=== PATIENT | male | born 1980 | race Two or more races ===

== ENCOUNTER 2023-09-04 14:08 | Outpatient (AMB) | payer BC, SELFPAY ==
--- NOTE | 2023-09-04 14:10 | A.OFFPC_ITS ---
Vital Signs 09/04/23 14:22 Height 5 ft 8.5 in Weight 201 lb 2 oz BMI 30.1 BP 118/80 Blood Pressure Location Lt brachial Position Sitting Pulse 68 Pulse Source Pulse Oximeter Pulse Oximetry (%) 96 Oxygen Delivery Method Room Air Intake Visit Reasons: New Patient Intake Note: Patient is a new patient here to establish care for B/L shoulder pain with numbness down to elbow for the past 6-8 months. . Transferring care from [place]. Medical records have been requested and received. Strategic Planning Manager Required: No Accompanied by: Self / Same As Patient Allergies No Known Allergies Allergy (Verified 02/06/24 04:45) Medication List - Last Reconciled 09/04/23 by Scar Cruz MD No Known Home Meds Tobacco use date assessed: 09/04/23 Dental Screening Dental Screen Date: 09/04/23 Did you have a dental visit in the last 12 months?: Yes Did you have a dental problem in the last 6 months where you did not have access to dental care?: No Was dental information given to patient?: Patient has dentist HPI New Patient HPI Details Patient comes in today to establish care - is a new patient to the practice He is transferring over from his PCP up at the [place] Patient states that he has been experiencing recurrent bilateral shoulder pain, with on and off numbness and pain radiating into his left elbow for the past 6 to 8 months now Notes that his symptoms tend to get worse with increased activity and the symptoms on the right side are slightly worse than the left He denies any history of injury or trauma to his shoulders or to his left elbow He also denies any neck pain or increased low back pain lately although he reports (+) Hx of bulging 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 at the L5-S1 level 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 He denies any headaches or dizziness Denies any chest pains, no SOB No nausea/vomiting, no abdominal pain No change in bowel habits noted Adds that he has noticed that his urine stream has slowed down a lot lately; he denies any nocturia (gets up to go to the bathroom just once a night on average) although he has also noticed some urinary hesitancy and urgency at times Denies any dysuria or hematuria [facility] Medical History (Updated 02/06/24 @ 09:22 by Scar Cruz MD) Overweight (BMI 25.0-29.9) Elevated LFTs Impaired fasting glucose Mixed hyperlipidemia Bilateral shoulder pain History of low back pain Family History Father No problems noted. 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 1. Little interest or pleasure in doing things: not at all 2. Feeling down, depressed, or hopeless: not at all 3. Trouble falling or staying asleep, or sleeping too much: not at all 4. Feeling tired or having little energy: not at all 5. Poor appetite or overeating: not at all 6. Feeling bad about yourself - or that you are a failure or have let yourself or your family down: not at all 7. Trouble concentrating on things, such as reading the newspaper or watching television: not at all 8. Moving or speaking so slowly that other people could have noticed. Or the opposite - being so fidgety or restless that you have been moving around a lot more than usual: not at all 9. Thoughts that you would be better off or of hurting yourself in some way: not at all Total score: 0 Depression Screening Interpretation: Negative Depression Screening Done: Yes 29636 - PHQ-9 Billing: Yes Source: Developed by Drs. Te Gonzalez, Itzel Velasco, Logan Peña and colleagues, with an educational mateo from [employer]. Thrive Questionnaire Date Thrive assessed: 09/04/23 I am a: Patient What is your living situation today?: I have a steady place to live Within the past 12 months, did the food you bought not last and you didn't have the money to get more?: Never true Within the past 12 months, did you worry whether your food would run out before you got money to buy more?: Never true Do you have trouble paying for medicines?: No Do you have trouble getting transportation to medical appointments?: No Do you have trouble paying your heating and electricity bill?: No Do you have trouble taking care of your child, family member or friend?: No Do you have trouble with day-to-day activities such as bathing, preparing meals, shopping, managing finances, etc.?: No Are you currently unemployed and looking for a job?: No Are you interested in more education?: No Please select the resources that you would like help with: None Currently or been in a relationship where the following occur: no concerns reported THRIVE Score: 0 AUDIT C Alcohol Use Questionnaire (AUDIT-C) 1. How often do you have a drink containing alcohol?: Never 3. How often do you have six or more drinks on one occasion?: Never Total Score: 0 Score Reviewed/Action Taken: Yes RERE-7 AMB Questionnaire RERE-7 Date RERE - 7 assessed: 09/04/23 Feeling nervous, anxious, or on edge: 0 = Not at all Not being able to stop or control worryin = Not at all Worrying too much about different things: 0 = Not at all Trouble relaxin = Not at all Being so restless that it is hard to sit still: 0 = Not at all Becoming easily annoyed or irritable: 0 = Not at all Feeling afraid as if something awful might happen: 0 = Not at all Total RERE-7 score (0-4 normal; 5-9 mild; 10-14 moderate; 15-21 severe): 0 Source: Developed by Drs. Te Gonzalez, Itzel Velasco, Logan Peña and colleagues, with an educational mateo from [employer]. RERE-7 Assessment Billing RERE-7 Assessment Tool: RERE-7 Assessment 83815 Review of Systems Const Denies chills, Denies fatigue, Denies fever(s) and Denies headache(s) ENT Denies dysphagia, Denies dizziness, Denies otalgia, Denies headache(s), Denies neck pain, Denies odynophagia and Denies sore throat Card Denies chest pain, Denies irregular heart rhythm, Denies palpitations and Denies dyspnea Resp Denies chest congestion, Denies cough and Denies dyspnea GI Denies abdominal pain, Denies constipation, Denies dysphagia, Denies heartburn, Denies diarrhea, Denies nausea, Denies odynophagia and Denies vomiting Denies hematuria, Reports difficulty urinating (at times), Denies dysuria, Denies nocturia, Denies urinary frequency, Reports urinary hesitancy (at times) and Reports urinary urgency (at times) Musc Denies back pain, Reports arthralgias (bilateral shoulders, R > L; left elbow (at times)), Denies neck pain and Reports numbness (on and off, radiating into the left elbow) Skin/Breast Denies rash Neuro Denies dizziness, Denies headache(s) and Reports numbness (on and off, radiating into the left elbow) Endo Denies fatigue and Denies palpitations Physical exam (Primary Care) Vital Signs: Last Vital Signs Pulse 68 09/04/23 14:22 BP 118/80 09/04/23 14:22 Pulse Ox 96 09/04/23 14:22 Oxygen Delivery Method Room Air 09/04/23 14:22 BMI result Body Mass Index 30.1 Tobacco/Smoking Status: Tobacco use Status Tobacco use date assessed 09/04/23 09/04/23 14:29 Patient Tobacco Use Status Never used Tobacco 09/04/23 14:29 e-Cigarette/Vaping Use Never Used 09/04/23 14:29 PHQ-9: PHQ-9 Score PHQ-9: Total score 0 09/04/23 14:42 Depression Screening Interpretation: Negative Thrive Assessment: Date of Thrive Assessment Date Thrive assessed 09/04/23 09/04/23 14:29 Currently or been in a relationship where the following occur: no concerns reported Const General: no acute distress and alert HENMT Ears: TM's normal bilaterally and EAC's normal Throat: Yes posterior oropharynx normal and Yes tonsils normal (no TP congestion) Neck Neck: Yes no lymphadenopathy and Yes supple Thyroid: Thyroid normal Resp Auscultation: clear to auscultation bilaterally, no rales and no wheezes Cardio Rate: regular rate Rhythm: regular rhythm Heart sounds: no murmurs GI Palpation (GI): Soft to palpation and nontender Auscultation: normal bowel sounds General: Yes no CVA tenderness Back/Spine/Pelvis Back: no CVA tenderness Thoracic/Lumbar Spine: lumbar spinal tenderness (mild) Skin Rashes: no rashes Extrem General: Yes no clubbing, cyanosis or edema Right upper extremity: shoulder/upper arm Details: tenderness Location: of the A-C joint and normal ROM; no swelling Left upper extremity: shoulder/upper arm Details: tenderness Location: of the A- C joint and normal ROM; no swelling Assessment and Plan Assessment & Plan (1) Bilateral shoulder pain: Code(s): M25.511 - Pain in right shoulder; M25.512 - Pain in left shoulder Qualifiers: Chronicity: unspecified Qualified Code(s): M25.511 - Pain in right shoulder; M25.512 - Pain in left shoulder Plan: Will send patient for x-rays of both shoulders for further evaluation (2) Left elbow pain: Code(s): M25.522 - Pain in left elbow Plan: Will send patient for x-rays of the left elbow for further evaluation (3) Urinary hesitancy: Code(s): R39.11 - Hesitancy of micturition Plan: Discussed with patient that his recent urinary symptoms are highly suggestive of BPH Will send him for some labs, including U/A and serum PSA level, for further evaluation (4) Obesity (BMI 30-39.9): Code(s): E66.9 - Obesity, unspecified Plan: Discussed diet/exercise as tolerated/lose weight Plan To return in 4 months for his annual physical examination Orders: Orders Complete Blood Count Auto Diff 09/04/23 D64.9 - Anemia, unspecified, M25.50 - Pain in unspecified joint XR elbow LT min 3V 09/04/23 M25.522 - Pain in left elbow TSH reflex Free T4 09/04/23 E78.00 - Pure hypercholesterolemia, unspecified, Z00.00 - Encounter for general adult medical examination without abnormal findings Vitamin D 25-OH Total 4 Months E55.9 - Vitamin D deficiency, unspecified, Z00.00 - Encounter for general adult medical examination without abnormal findings Prostate Specific Antigen 09/04/23 N40.0 - Benign prostatic hyperplasia without lower urinary tract symptoms, M25.50 - Pain in unspecified joint UA CC w/rflx Micro + Cult 09/04/23 R30.0 - Dysuria, M25.50 - Pain in unspecified joint XR shoulder LT min 2V 09/04/23 M25.511 - Pain in right shoulder, M25.512 - Pain in left shoulder XR shoulder RT min 2V 09/04/23 M25.511 - Pain in right shoulder, M25.512 - Pain in left shoulder Lipid Panel 09/04/23 E78.00 - Pure hypercholesterolemia, unspecified, Z00.00 - Encounter for general adult medical examination without abnormal findings Comprehensive [place]. Panel Fast 09/04/23 E78.00 - Pure hypercholesterolemia, unspecified, Z00.00 - Encounter for general adult medical examination without abnormal findings Coding Level of Care Code New Pt Level 4 (55726) Diagnoses Bilateral shoulder pain, unspecified chronicity M25.511; M25.512 Chronicity: unspecified Left elbow pain M25.522 Urinary hesitancy R39.11 Obesity (BMI 30-39.9) E66.9 Additional Codes RERE-7 Assessment Billing - RERE-7 Assessment Tool: RERE-7 Assessment 97186 ([id number])
[2023-09-04 14:22] VITALS: BP 118/80; PULSE 68; O2SAT 96; BMI 30.1
== END 2023-09-04 15:11 | disposition home or self-care (01) ==
PROVIDERS: PCP Internal Medicine; Visit Provider Internal Medicine
DX: M25.511 Pain in right shoulder (principal); M25.512 Pain in left shoulder; M25.522 Pain in left elbow; R39.11 Hesitancy of micturition; E66.9 Obesity, unspecified
CPT/HCPCS: 99499

== ENCOUNTER 2023-09-19 16:53 | Outpatient (REF) | payer BC, SELFPAY ==
--- NOTE | ~2023-09-19 | XR_ITS ---
EXAMINATION: XR BILATERAL SHOULDERS XR LEFT ELBOW CLINICAL INFORMATION: Pain in right shoulder, lateral elbow is under oblique tag per technologist statement. Pain left elbow. COMPARISON: None TECHNIQUE: 3 views left elbow. 4 views of each shoulder. FINDINGS: LEFT ELBOW: No significant joint effusion. Large dorsal olecranon spur with prominence of the overlying soft tissues. Alignment preserved. No displaced fracture appreciated. LEFT SHOULDER: Mild degenerative changes in the acromioclavicular joint. Glenohumeral alignment is preserved. No significant soft tissue calcifications are identified adjacent to the humeral head. RIGHT SHOULDER: Mild degenerative changes in the acromioclavicular joint. Glenohumeral alignment is preserved. No abnormal soft tissue calcifications identified adjacent to the humeral head. XR/XR shoulder LT min 2V IMPRESSION: 1. Large left dorsal olecranon spur with prominence of the overlying soft tissues. 2. Mild degenerative changes bilateral acromioclavicular joints.
--- NOTE | ~2023-09-19 | XR_ITS ---
EXAMINATION: XR BILATERAL SHOULDERS XR LEFT ELBOW CLINICAL INFORMATION: Pain in right shoulder, lateral elbow is under oblique tag per technologist statement. Pain left elbow. COMPARISON: None TECHNIQUE: 3 views left elbow. 4 views of each shoulder. FINDINGS: LEFT ELBOW: No significant joint effusion. Large dorsal olecranon spur with prominence of the overlying soft tissues. Alignment preserved. No displaced fracture appreciated. LEFT SHOULDER: Mild degenerative changes in the acromioclavicular joint. Glenohumeral alignment is preserved. No significant soft tissue calcifications are identified adjacent to the humeral head. RIGHT SHOULDER: Mild degenerative changes in the acromioclavicular joint. Glenohumeral alignment is preserved. No abnormal soft tissue calcifications identified adjacent to the humeral head. XR/XR shoulder RT min 2V IMPRESSION: 1. Large left dorsal olecranon spur with prominence of the overlying soft tissues. 2. Mild degenerative changes bilateral acromioclavicular joints.
--- NOTE | ~2023-09-19 | XR_ITS ---
EXAMINATION: XR BILATERAL SHOULDERS XR LEFT ELBOW CLINICAL INFORMATION: Pain in right shoulder, lateral elbow is under oblique tag per technologist statement. Pain left elbow. COMPARISON: None TECHNIQUE: 3 views left elbow. 4 views of each shoulder. FINDINGS: LEFT ELBOW: No significant joint effusion. Large dorsal olecranon spur with prominence of the overlying soft tissues. Alignment preserved. No displaced fracture appreciated. LEFT SHOULDER: Mild degenerative changes in the acromioclavicular joint. Glenohumeral alignment is preserved. No significant soft tissue calcifications are identified adjacent to the humeral head. RIGHT SHOULDER: Mild degenerative changes in the acromioclavicular joint. Glenohumeral alignment is preserved. No abnormal soft tissue calcifications identified adjacent to the humeral head. XR/XR elbow LT min 3V IMPRESSION: 1. Large left dorsal olecranon spur with prominence of the overlying soft tissues. 2. Mild degenerative changes bilateral acromioclavicular joints.
== END 2023-09-19 16:54 | disposition home or self-care (01) ==
LOC: HO.XRAY 16:53
PROVIDERS: PCP Internal Medicine; Visit Provider Internal Medicine
DX: M25.511 Pain in right shoulder (principal); M25.512 Pain in left shoulder; M25.522 Pain in left elbow
CPT/HCPCS: 73030; 73080

== ENCOUNTER 2023-09-21 08:10 | Outpatient (AMB) | payer BC, SELFPAY ==
[2023-09-21 09:13] VITALS: BP 110/68; PULSE 54; TEMP 36.3; O2SAT 99
--- NOTE | 2023-09-21 09:13 | AM.OFFWIN_ITS ---
Intake Vital Signs 09/21/23 09:13 Height 5 ft 8.5 in Weight 200 lb BMI 30.0 BP 110/68 Blood Pressure Location Lt brachial Position Sitting Pulse 54 Pulse Source Pulse Oximeter Temp 97.4 F Temp Source Temporal Artery Scan Pulse Oximetry (%) 99 Oxygen Delivery Method Room Air Intake Visit Reasons: EP LT shoulder/neck pain Intake Note: pt is here today for lft shoulder neck pain started 3 weeks ago Patient Tobacco Use Status: Never used Tobacco Allergies No Known Allergies Allergy (Verified 09/21/23 09:18) Do you need a note to return to daycare/school/sports/work: Yes HPI HPI Comments History of Present Illness Details 42 y/o male patient who presents to walk in clinic with c/o left shoulder/neck pain x 3 weeks. Reports that pain radiates down to his left elbow and hand. Pt had X-rays done yesterday, final reading pending. [facility] Medical History (Updated 09/04/23 @ 15:00 by Scar Cruz MD) Bilateral shoulder pain History of low back pain Family History (Updated 09/04/23 @ 14:26 by JOSE Spann) Father No problems noted. 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 Cognitive needs: No Hearing needs: No Vision needs: No Review of Systems Const All systems reviewed & are unremarkable except as noted in HPI and below Physical Exam Vital Signs: Last Vital Signs Temp 97.4 F 09/21/23 09:13 Pulse 54 09/21/23 09:13 BP 110/68 09/21/23 09:13 Pulse Ox 99 09/21/23 09:13 Oxygen Delivery Method Room Air 09/21/23 09:13 BMI result Body Mass Index 30.0 Const General: comfortable and no acute distress Orientation/consciousness: patient oriented x3 Neuro General: patient oriented x3 Extrem General: Yes normal to inspection and Yes full ROM Right upper extremity: normal to inspection, full ROM, shoulder/upper arm Details: normal to inspection and normal ROM; no tenderness and no swelling and elbow/forearm Details: normal to inspection and normal ROM; no tenderness and no swelling Left upper extremity: normal to inspection, shoulder/upper arm Details: inspection abnormal, axillary nerve sensory function normal and normal ROM; no tenderness, no swelling, no ecchymosis, no crepitus and no deformity and elbow/forearm Details: normal to inspection and normal ROM; no tenderness, no swelling and no unusual warmth Assessment & Plan Assessment & Plan (1) Neck pain on left side: Code(s): M54.2 - Cervicalgia Plan: - Acetaminophen for pain relief. - Advised PT and referral ordered. Orders: Orders PT Evaluation and Treatment Today M25.522 - Pain in left elbow, M54.2 - Cervicalgia Coding Level of Care Code Est Pt Level 3 (32528) Diagnoses Neck pain on left side M54.2 Time Spent (min) 15
== END 2023-09-21 11:17 | disposition home or self-care (01) ==
PROVIDERS: PCP Internal Medicine; Visit Provider Nurse Practitioner Family
DX: M54.2 Cervicalgia (principal)
CPT/HCPCS: 99213

== ENCOUNTER 2023-09-21 08:13 | Outpatient (REF) | payer BC, SELFPAY ==
[2023-09-21 10:23] LABS: MANUAL DIFF FLAG NO
[2023-09-21 10:36] LABS: Appearance Urine Clear; Color Urine Yellow; Glucose Urine UA Negative (Negative); Leukocyte Esterase Urine Negative (Negative); Nitrite Urine Negative (Negative); PH 5.5 (5.0-9.0); Specific Gravity - Urine >= 1.030 (1.005-1.025); Urine Blood Negative (Negative); Urine Ketones Negative (Negative); Urine Protein Negative (Neg-Trace)
[2023-09-21 10:49] LABS: Basophils Absolute Auto 0.1 X10*3/uL (0.0-0.2); Basophils Percent Auto 0.8 % (0-2); Eosinophils Absolute Auto 0.2 X10*3/uL (0.0-0.4); Eosinophils Percent Auto 2.5 % (0-4); Hematocrit 46.3 % (42.0-52.0); Hemoglobin 15.6 g/dl (14.0-18.0); Imm Gran Abs Auto 0.01 X10*3/uL (0.00-0.03); Imm Gran Pct Auto 0.2 % (0.0-0.4); Lymphocytes Absolute Auto 2.2 X10*3/uL (1.2-4.9); Mean Corpuscular HGB Conc 33.7 g/dl (31.0-36.0); Mean Corpuscular Hemoglobin 29.2 pg (27.0-33.0); Mean Corpuscular Volume 86.5 fL (80.0-98.0); Mean Platelet Volume 11.4 fL (9.4-12.4); Monocytes Absolute Auto 0.7 X10*3/uL (0.1-1.2); Monocytes Percent Auto 11.1 % (2-11); Neutrophils Absolute Auto 3.3 x10*3/uL (2.0-8.3); Neutrophils Percent Auto 51.4 % (45-73); Platelet Count 297 X10*3/uL (160-400); Red Blood Count 5.35 X10*6/uL (4.60-5.80); Red Cell Distribution Width 13.2 % (11.0-16.0); White Blood Count 6.4 X10*3/uL (4.8-10.8)
[2023-09-21 11:00] LABS: Alanine Aminotransferase 43 U/L (0-40); Albumin Level 4.2 g/dL (3.5-5.0); Alkaline Phosphatase 88 U/L (39-117); Anion Gap 8 (12-20); Aspartate Amino Transferase 22 U/L (5-37); Bilirubin Total 0.4 mg/dL (0.0-1.0); Blood Urea Nitrogen 13 mg/dL (9-16); Calcium 9.4 mg/dL (8.4-10.2); Carbon Dioxide 28 mmol/L (22-29); Chloride 107 mmol/L (96-108); Cholesterol 166 mg/dL (<200); Estimated Glomerular Filt Rate > 60; Glucose Fasting 103 mg/dL (60-99); HDL Cholesterol 41 mg/dL (>40); LDL Cholesterol Calculated 94 mg/dL (<100); Potassium 4.2 mmol/L (3.3-5.1); Sodium 139 mmol/L (135-145); Total Protein 7.5 g/dL (6.5-8.0); Triglycerides 159 mg/dL (<150)
[2023-09-21 11:03] LABS: Prostate Specific Antigen 3.88 ng/mL (<0.05-4.0)
[2023-09-21 11:06] LABS: TSH reflex Free T4 1.42 uIU/mL (0.32-4.0); Vitamin D 25-OH Total 37.9 ng/mL (>30)
== END 2023-09-21 08:14 | disposition home or self-care (01) ==
LOC: HO.HMGCLDS 08:13
PROVIDERS: PCP Internal Medicine; Visit Provider Internal Medicine
DX: Z00.00 Encounter for general adult medical examination without abnormal findings (principal); Z12.5 Encounter for screening for malignant neoplasm of prostate; M25.50 Pain in unspecified joint; E55.9 Vitamin D deficiency, unspecified; N40.0 Benign prostatic hyperplasia without lower urinary tract symptoms; R30.0 Dysuria; E78.00 Pure hypercholesterolemia, unspecified; D64.9 Anemia, unspecified
CPT/HCPCS: 36415; 80053; 80061; 81003; 82306; 84153; 84443; 85025

== ENCOUNTER 2024-02-05 14:51 | Outpatient (AMB) | payer BC, SELFPAY ==
[2024-02-05 15:04] VITALS: BP 104/68; PULSE 73; O2SAT 96; BMI 29.9
--- NOTE | 2024-02-05 15:04 | A.OFFPC_ITS ---
Vital Signs 02/05/24 15:04 Height 5 ft 8.5 in Weight 199 lb 6 oz BMI 29.9 BP 104/68 Blood Pressure Location Lt brachial Position Sitting Pulse 73 Pulse Source Pulse Oximeter Pulse Oximetry (%) 96 Oxygen Delivery Method Room Air Intake Visit Reasons: annual PE Environmental Protection Geologist Required: No Accompanied by: Self / Same As Patient Allergies No Known Allergies Allergy (Verified 02/06/24 04:45) Medication List - Last Reconciled 02/06/24 by Scar Cruz MD No Known Home Meds Tobacco use date assessed: 02/05/24 Dental Screening Dental Screen Date: 02/05/24 Did you have a dental visit in the last 12 months?: Yes Did you have a dental problem in the last 6 months where you did not have access to dental care?: No Was dental information given to patient?: Patient has dentist HPI annual PE HPI Details Patient comes in today for his annual physical examination States that he feels okay except for some urinary symptoms that he states have been bothering him for a few months now He reports experiencing recurrent symptoms of urinary frequency, nocturia and urgency at times He has also noticed some initial urinary hesitancy when he is using the bathroom and has noted a decrease in the strength of his urinary stream as well lately He denies any dysuria He denies any headaches or dizziness Denies any chest pains, no SOB No nausea/vomiting, no abdominal pain No change in bowel habits noted He would like to know how he did on his labs done back in August 2023 [facility] Medical History (Updated 02/06/24 @ 05:19 by Scar Cruz MD) Overweight (BMI 25.0-29.9) Elevated LFTs Impaired fasting glucose Mixed hyperlipidemia Bilateral shoulder pain History of low back pain Family History Father No problems noted. 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 1. Little interest or pleasure in doing things: not at all 2. Feeling down, depressed, or hopeless: not at all 3. Trouble falling or staying asleep, or sleeping too much: not at all 4. Feeling tired or having little energy: not at all 5. Poor appetite or overeating: not at all 6. Feeling bad about yourself - or that you are a failure or have let yourself or your family down: not at all 7. Trouble concentrating on things, such as reading the newspaper or watching television: not at all 8. Moving or speaking so slowly that other people could have noticed. Or the opposite - being so fidgety or restless that you have been moving around a lot more than usual: not at all 9. Thoughts that you would be better off or of hurting yourself in some way: not at all Total score: 0 Depression Screening Interpretation: Negative Depression Screening Done: Yes 61409 - PHQ-9 Billing: Yes Source: Developed by Drs. Te Gonzalez, Itzel Velasco, Logan Peña and colleagues, with an educational mateo from [employer]. Thrive Questionnaire Date Thrive assessed: 02/05/24 I am a: Patient What is your living situation today?: I have a steady place to live Within the past 12 months, did the food you bought not last and you didn't have the money to get more?: Never true Within the past 12 months, did you worry whether your food would run out before you got money to buy more?: Never true Do you have trouble paying for medicines?: No Do you have trouble getting transportation to medical appointments?: No Do you have trouble paying your heating and electricity bill?: No Do you have trouble taking care of your child, family member or friend?: No Do you have trouble with day-to-day activities such as bathing, preparing meals, shopping, managing finances, etc.?: No Are you currently unemployed and looking for a job?: No Are you interested in more education?: No Please select the resources that you would like help with: None Currently or been in a relationship where the following occur: No concerns reported THRIVE Score: 0 AUDIT C Alcohol Use Questionnaire (AUDIT-C) 1. How often do you have a drink containing alcohol?: Monthly or less 2. How many drinks containing alcohol do you have on a typical day when you are drinking?: 1 or 2 3. How often do you have six or more drinks on one occasion?: Never Total Score: 1 Score Reviewed/Action Taken: Yes RERE-7 AMB Questionnaire RERE-7 Date RERE - 7 assessed: 02/05/24 Feeling nervous, anxious, or on edge: 0 = Not at all Not being able to stop or control worryin = Not at all Worrying too much about different things: 0 = Not at all Trouble relaxin = Not at all Being so restless that it is hard to sit still: 0 = Not at all Becoming easily annoyed or irritable: 0 = Not at all Feeling afraid as if something awful might happen: 0 = Not at all Total RERE-7 score (0-4 normal; 5-9 mild; 10-14 moderate; 15-21 severe): 0 Source: Developed by Drs. Te Gonzalez, Itzel Velasco, Logan Peña and colleagues, with an educational mateo from [employer]. Review of Systems Const Denies chills, Denies fatigue, Denies fever(s), Denies headache(s), Denies malaise and Denies weakness Eyes Denies blurry vision, Denies change in vision, Denies irritation and Denies itchy eyes ENT Denies dysphagia, Denies dizziness, Denies otalgia, Denies headache(s), Denies nasal congestion, Denies neck pain, Denies odynophagia and Denies sore throat Card Denies chest pain, Denies rapid heart rate, Denies irregular heart rhythm, Denies palpitations and Denies dyspnea Resp Denies chest congestion, Denies cough, Denies dyspnea and Denies wheezing GI Denies abdominal pain, Denies bloating, Denies constipation, Denies dysphagia, Denies heartburn, Denies diarrhea, Denies nausea, Denies odynophagia and Denies vomiting Denies hematuria, Reports difficulty urinating (at times), Denies dysuria, Reports nocturia, Reports urinary frequency, Reports urinary hesitancy and Reports urinary urgency Musc Denies back pain, Denies arthralgias, Denies joint swelling, Denies muscle weakness and Denies neck pain Skin/Breast Denies change in pigmentation, Denies lesions, Denies rash and Denies unusual bruising Neuro Denies dizziness, Denies headache(s), Denies paresthesias and Denies weakness Endo Denies fatigue and Denies palpitations Aller/Immun Denies itchy eyes and Denies wheezing Physical exam (Primary Care) Vital Signs: Last Vital Signs Pulse 73 02/05/24 15:04 BP 104/68 02/05/24 15:04 Pulse Ox 96 02/05/24 15:04 Oxygen Delivery Method Room Air 02/05/24 15:04 BMI result Body Mass Index 29.9 Tobacco/Smoking Status: Tobacco use Status Tobacco use date assessed 02/05/24 02/05/24 15:10 Patient Tobacco Use Status Never used Tobacco 02/05/24 15:10 e-Cigarette/Vaping Use Never Used 02/05/24 15:10 PHQ-9: PHQ-9 Score PHQ-9: Total score 0 02/05/24 15:38 Depression Screening Interpretation: Negative Thrive Assessment: Date of Thrive Assessment Date Thrive assessed 02/05/24 02/05/24 15:10 Currently or been in a relationship where the following occur: No concerns reported Const General: no acute distress, alert and awake Orientation/consciousness: patient oriented x3 HENMT Head: Yes normocephalic and Yes atraumatic Ears: external ears normal, TM's normal bilaterally and EAC's normal General nose exam: No nasal discharge present Face and sinus: Yes normal facial exam and Yes sinuses nontender Teeth and gingiva: dentition normal Throat: Yes posterior oropharynx normal and Yes tonsils normal (no TP congestion) Eyes Eyelids: Yes eyelids normal Conjunctivae: conjunctivae normal Pupils: Equal, round and reactive pupils present EOM: EOMs intact bilaterally Neck Neck: Yes no lymphadenopathy and Yes supple Thyroid: Thyroid normal Resp Auscultation: clear to auscultation bilaterally, no rales and no wheezes Cardio Rate: regular rate Rhythm: regular rhythm Heart sounds: no murmurs GI Palpation (GI): Soft to palpation, nontender and No hepatosplenomegaly present Auscultation: normal bowel sounds General: Yes no CVA tenderness Back/Spine/Pelvis Back: no CVA tenderness Thoracic/Lumbar Spine: thoracic and lumbar spine normal to inspection Skin Lesions: no lesions Rashes: no rashes Neuro General: patient oriented x3, moves all extremities, no focal motor deficits and CN's II-XI intact bilaterally Cranial nerves: Yes Equal, round and reactive pupils present Cognition (Neuro): normal cognition Gait exam (Neuro): Normal gait present Extrem General: Yes no clubbing, cyanosis or edema Results Reviewed Results Reviewed: Laboratory Tests 09/21/23 09/21/23 08:52 09:02 WBC 6.4 Hgb 15.6 Hct 46.3 Plt Count 297 Sodium 139 Potassium 4.2 Creatinine 0.89 Estimated GFR > 60 Fasting Glucose 103 H Calcium 9.4 AST 22 ALT 43 H Triglycerides 159 H Cholesterol 166 LDL Cholesterol, Calc 94 HDL Cholesterol 41 Prostate Specific Ag 3.88 25-OH Vitamin D Total 37.9 TSH 1.42 Ur Specific [place] >= 1.030 H Urine Protein Negative Urine Glucose (UA) Negative Urine Blood Negative Urine Nitrite Negative Ur Leukocyte Esterase Negative Assessment and Plan Assessment & Plan (1) Annual physical exam: Code(s): Z00.00 - Encounter for general adult medical examination without abnormal findings Plan: Results of his labs done back in August 2023 reviewed and discussed with patient (2) Mixed hyperlipidemia: Code(s): E78.2 - Mixed hyperlipidemia Plan: Patient is advised that his serum triglyceride level was elevated on his labs done back in August 2023 although his total and LDL cholesterol were at goal Discussed low cholesterol diet (3) Impaired fasting glucose: Code(s): R73.01 - Impaired fasting glucose Plan: He is advised that his FBS is just slightly over the cutoff for normal range Discussed low calorie/low carb diet to help manage her hyperglycemia (4) Elevated LFTs: Code(s): R79.89 - Other specified abnormal findings of blood chemistry Plan: He is also advised that his ALT was elevated on his labs back in August 2023; AST was normal Discussed that this is likely due to hepatosteatosis and that losing some weight can help get this back to normal He is cautioned as well on drinking too much alcohol and also advised against taking more than a total of 2000 mg of OTC Acetaminphen when needed (5) Benign prostatic hyperplasia with lower urinary tract symptoms: Code(s): N40.1 - Benign prostatic hyperplasia with lower urinary tract symptoms Qualifiers: Lower urinary tract symptom detail: urinary frequency Qualified Code(s): N40.1 - Benign prostatic hyperplasia with lower urinary tract symptoms; R35.0 - Frequency of micturition Plan: Have advised patient that his serum PSA level was also slightly elevated on his recent labs at 3.88 and that this, coupled with his recent urinary symptoms, are consistent with BPH Have advised him though that he should still be seen and evaluated by urology to ensure that he stays up-to-date on his prostate tests and evaluation Will refer him to urology for further evaluation and management (6) Overweight (BMI 25.0-29.9): Code(s): E66.3 - Overweight Plan: Reinforced diet/exercise as tolerated/lose weight Plan Follow up in 6 months Orders: Referrals Urology Referral N40.1 - Benign prostatic hyperplasia with lower urinary tract symptoms, R97.20 - Elevated prostate specific antigen [PSA] Coding Level of Care Code Est Pt Prev Care 40-64y(27012) Diagnoses Annual physical exam Z00.00 Mixed hyperlipidemia E78.2 Impaired fasting glucose R73.01 Elevated LFTs R79.89 Benign prostatic hyperplasia with urinary frequency N40.1; R35.0 Lower urinary tract symptom detail: urinary frequency Overweight (BMI 25.0-29.9) E66.3
== END 2024-02-05 15:45 | disposition home or self-care (01) ==
PROVIDERS: PCP Internal Medicine; Visit Provider Internal Medicine
DX: Z00.00 Encounter for general adult medical examination without abnormal findings (principal); E78.2 Mixed hyperlipidemia; R73.01 Impaired fasting glucose; R79.89 Other specified abnormal findings of blood chemistry; N40.1 Benign prostatic hyperplasia with lower urinary tract symptoms; R35.0 Frequency of micturition; E66.3 Overweight
CPT/HCPCS: 99396

== ENCOUNTER 2024-04-01 08:55 | Outpatient (AMB) | payer BC, SELFPAY ==
--- NOTE | 2024-04-01 09:04 | MHC.OFFVIS ---
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 Cruz. He has a past medical history of elevated LFTs, mixed hyperlipidemia, and low-back pain. He presents to the office today as a new patient for ongoing lower urinary tract symptoms and elevated PSA. In discussion with the patient today he reports noting bothersome urinary issues have been present for 4-5 years however feels they have worsened over the last year. He reports noting urge incontinence urinary frequency, and urinary urgency. In review of patient's chart it appears PSA 09/19 3.9. When asked he denies a family history of prostate cancer. We discussed at length potential causes of lower urinary tract symptoms patient has been experiencing as well as elevated PSA. This was discussed at length. All questions were answered. SARWAT performed smooth, no masses or nodules palpated however right side firmer than left. In office urinalysis results reviewed with the patient today. PVR 42 mL. We discussed redraw of PSA with no sex the night before, no caffeine morning of, no heavy lifting 1-2 days prior as well as obtaining retroperitoneal ultrasound for further assessment evaluation. He otherwise denies hematuria, dysuria, foul smelling urine, changes to urinary stream, flank pain, fever, and or chills. [facility] Medical History Overweight (BMI 25.0-29.9) Elevated LFTs Impaired fasting glucose Mixed hyperlipidemia Bilateral shoulder pain History of low back pain Family History Father No problems noted. 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 Cognitive needs: No Hearing needs: No Vision needs: No Review of Systems Const All systems reviewed & are unremarkable except as noted in HPI and below Physical Exam Const General: cooperative, comfortable, no acute distress, well developed, alert and awake Orientation/consciousness: patient oriented x3 HEENT Head: Yes normal to inspection, Yes normocephalic and Yes atraumatic Ears: hearing grossly normal bilaterally Eyes General: appearance normal, both eyes and all related structures Neck Neck: Yes normal visual inspection and Yes trachea midline Chest Chest palpation & inspection: normal inspection of the chest Resp Effort & Inspection: normal respiratory effort and able to speak in complete sentences Cardio Rate: regular rate GI Inspection: Yes normal to inspection General: Yes no CVA tenderness Back/Spine/Pelvis Back: no CVA tenderness Skin General skin exam: no rashes or lesions noted Neuro General: patient oriented x3 Extrem General: Yes normal to inspection Psych Appearance: grossly normal and well kempt Mental Status: mental status grossly normal Speech and movement: Normal speech and movement present and Clear speech present Affect: normal affect Attitude: cooperative Thought process: Normal thought process present Thought content: Normal thought content present Insight: Fair insight present (Psych) Judgement: Fair judgement present (Psych) Office Procedures Post Void Residual Post Residual Void Post Void Residual (PVR): 42 [id number] Void Residual by ultrasound Results AMB Urinalysis, Automated UA Leukoctes 0 Munir/uL Last Edit by Marco AntonioTutorialTabcurtis Juarez on 04/01/24 09:20 UA Nitrite Last Edit by Aurora Juarez on 04/01/24 09:20 UA Urobilinogen 0.2 mg/dL Last Edit by Aurora Juarez on 04/01/24 09:20 UA Protein 0 mg/dL Last Edit by Aurora Juarez on 04/01/24 09:20 UA pH 6.0 Last Edit by Marco AntonioTutorialTabcurtis Juarez on 04/01/24 09:20 UA Blood 0 Wilian/uL Last Edit by Marco AntonioTutorialTabcurtis Juarez on 04/01/24 09:20 UA Specific [place] 1.020 Last Edit by Aurora Juarez on 04/01/24 09:20 UA Ketone Last Edit by Marco AntonioTutorialTabcurtis Juarez on 04/01/24 09:20 UA Bilirubin 0 mg/dL Last Edit by Aurora Juarez on 04/01/24 09:20 UA Glucose 0 mg/dL Last Edit by Marco AntonioTutorialTabcurtis Juarez on 04/01/24 09:20 Results Reviewed Results Reviewed: Laboratory Last Values Urine pH (Auto) 6.0 04/01/24 09:13 Specific [place] (Auto) 1.020 04/01/24 09:13 Urine Protein (Auto) 0 mg/dL 04/01/24 09:13 Glucose (UA)(Auto) 0 mg/dL 04/01/24 09:13 Urine Blood (Auto) 0 Wilian/uL 04/01/24 09:13 Urine Bilirubin (Auto) 0 mg/dL 04/01/24 09:13 Urine Urobilinogen (Auto) 0.2 mg/dL 04/01/24 09:13 Leukocyte Esterase (Auto) 0 Munir/uL 04/01/24 09:13 Assessment & Plan Assessment & Plan (1) Elevated PSA: Code(s): R97.20 - Elevated prostate specific antigen [PSA] Category: Medical (2) Urinary urgency: Code(s): R39.15 - Urgency of urination Category: Medical (3) Urinary frequency: Code(s): R35.0 - Frequency of micturition Category: Medical (4) Urinary incontinence, urge: Code(s): N39.41 - Urge incontinence Category: Medical Plan In office urinalysis results reviewed with the patient today; as noted above. PVR 42 mL. Recent PSA results reviewed with the patient today. SARWAT performed; as noted above. Discussed at length potential causes of lower urinary tract symptoms patient is experiencing. Discussed at length potential causes of elevated PSA given patient's age. Will obtain redraw of PSA with no sex the night before, no caffeine morning of, no heavy lifting 1-2 days prior. Will obtain retroperitoneal ultrasound for further assessment evaluation. Discussed bladder triggers/irritants. Follow-up in 1-2 months with redraw of PSA and imaging; or sooner with any issues, concerns, and or questions. Orders: Orders PSA,Total (Free>4and<10) Today R97.20 - Elevated prostate specific antigen [PSA] AMB Post Void Residual by ultrasound Today N39.41 - Urge incontinence US retroperitoneal comp Today N39.41 - Urge incontinence, R35.0 - Frequency of micturition, R39.15 - Urgency of urination AMB Urinalysis Automated Today Z13.9 - Encounter for screening, unspecified Patient Instructions: The patient had an opportunity to ask questions regarding the treatment plan. All questions were answered. Physical exam, labs, and imaging were discussed and reviewed in detail. As well as risks, benefits, and discussion of treatment choices. No major barriers to understanding were identified. The patient expressed understanding and agreement with the above treatment plan. The patient was made aware they should contact our office by phone for worsening of their current condition, the appearance of new symptoms, or with any questions or concerns. Compliance is encouraged with any medications and follow up testing that is ordered. It is a privilege to be allowed the opportunity to participate in? your urological care.? Again, if you have any questions or concerns If you have any questions or concerns please do not hesitate to contact me. The office is [phone]. This note is constructed using voice recognition software. While every effort has been made to ensure accuracy thinner sprayer errors may have been included. Yours sincerely, LONNIE Bright Coding Level of Care Code New Pt Level 3 (08691) Diagnoses Elevated PSA R97.20 Urinary urgency R39.15 Urinary frequency R35.0 Urinary incontinence, urge N39.41 CPT Codes Post Residual Void - PVR CPT Code: 36672-[place] Void Residual by ultrasound ([id number])
== END 2024-04-01 09:44 | disposition home or self-care (01) ==
LOC: HO.HUSH 08:56
PROVIDERS: PCP Internal Medicine; Visit Provider Nurse Practitioner Family
DX: R97.20 Elevated prostate specific antigen [PSA] (principal); R39.15 Urgency of urination; R35.0 Frequency of micturition; N39.41 Urge incontinence; Z13.9 Encounter for screening, unspecified
CPT/HCPCS: 99203

== ENCOUNTER → 2024-04-01 08:55 | Outpatient (BNVA) | payer BC, SELFPAY | PROVIDERS: PCP Internal Medicine; Visit Provider Nurse Practitioner Family | DX: R97.20 Elevated prostate specific antigen [PSA] (principal); N39.41 Urge incontinence; R35.0 Frequency of micturition | CPT/HCPCS: 51798; 81003 ==

== ENCOUNTER 2024-04-15 10:18 | Outpatient (REF) | payer BC, SELFPAY | END 2024-04-15 10:19 | disposition home or self-care (01) | LOC: HO.US 10:18 | PROVIDERS: PCP Internal Medicine; Visit Provider Nurse Practitioner Family | DX: R35.0 Frequency of micturition (principal); R39.15 Urgency of urination | CPT/HCPCS: 76770 ==

== ENCOUNTER 2024-05-13 09:08 | Outpatient (REF) | payer BC, SELFPAY ==
[2024-05-13 12:00] LABS: PSA,Total (Free>4and<10) 3.91 ng/mL (0.00-4.00)
== END 2024-05-13 09:09 | disposition home or self-care (01) ==
LOC: HO.LAB 09:08
PROVIDERS: PCP Internal Medicine; Visit Provider Nurse Practitioner Family
DX: R97.20 Elevated prostate specific antigen [PSA] (principal); Z12.5 Encounter for screening for malignant neoplasm of prostate
CPT/HCPCS: 36415; 84153

== ENCOUNTER 2024-06-03 13:22 | Outpatient (AMB) | payer BC, SELFPAY ==
--- NOTE | 2024-06-03 13:42 | A.OFFVIS_ITS ---
Intake Visit Reasons: 2m/US/PSA(set) Intake Note: Patient presents today for follow up visit for incontinence, psa lab and ultrasound results * PSA: 3.91 * Imaging completed: 04/15/24 Urology Medications: none Blood Thinner: none * PVR: 78ml's Crane Chaser Required: No Accompanied by: Self / Same As Patient Allergies No Known Allergies Allergy (Verified 06/03/24 21:47) Medication List - Last Reconciled 06/03/24 by FAHEEM Bright alfuzosin ER 10 mg PO BEDTIME 30 days HPI Comments Details: Geovany is a very pleasant 43-year-old male patient of Dr. Cruz. He has a past medical history of elevated LFTs, mixed hyperlipidemia, and low-back pain. He presents to the office today for follow-up. Of note, patient was seen approximately 2 months ago as a new patient for ongoing lower urinary tract symptoms and elevated PSA at which time a retroperitoneal ultrasound and redraw of PSA were ordered for further assessment evaluation. These results were reviewed with the patient today. On official retroperitoneal ultrasound results note bilateral kidneys with no calculi, lesions, and or hydronephrosis. Pre void bladder volume is approximately 190 mL. Postvoid bladder volume is approximately 50 mL. The prostate measures 44 mL. PSAs are as follows 09/19 3.9, 05/21 3.9 He discusses having a voided bladder triggers and irritants as discussed at last office visit and continues to feel he experiences urinary urgency and weak urinary stream. He otherwise denies nocturia, hematuria, dysuria, foul smelling urine, changes to urinary stream, flank pain, fever, and or chills. During initial appointment patient had denied any family history of prostate cancer however he reports recently finding out maternal grandfather had prostate cancer. We discussed at length potential causes of lower urinary tract symptoms patient has been experiencing as well as elevated PSA. This was discussed at length. All questions were answered. SARWAT during last office visit was performed and noted to be smooth, no masses or nodules palpated however right side firmer than left. In office urinalysis results reviewed with the patient today. We discussed further intervention to include surveillance monitoring versus prostate biopsy verses MRI of the prostate. Risks and benefits of these interventions were discussed. He otherwise offers no other issues or concerns at this time. [facility] Medical History Overweight (BMI 25.0-29.9) Elevated LFTs Impaired fasting glucose Mixed hyperlipidemia Bilateral shoulder pain History of low back pain Family History Father No problems noted. 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 Cognitive needs: No Hearing needs: No Vision needs: No Review of Systems Const All systems reviewed & are unremarkable except as noted in HPI and below Physical Exam Const General: cooperative, healthy appearing, comfortable, no acute distress, well developed, alert and awake Orientation/consciousness: patient oriented x3 Limitations: no limitations HEENT Head: Yes normal to inspection, Yes normocephalic and Yes atraumatic Ears: hearing grossly normal bilaterally Eyes General: appearance normal, both eyes and all related structures Neck Neck: Yes normal visual inspection and Yes trachea midline Chest Chest palpation & inspection: normal inspection of the chest Resp Effort & Inspection: normal respiratory effort and able to speak in complete sentences Cardio Rate: regular rate GI Inspection: Yes normal to inspection General: Yes no CVA tenderness Back/Spine/Pelvis Back: no CVA tenderness Skin General skin exam: no rashes or lesions noted Neuro General: patient oriented x3 Extrem General: Yes normal to inspection Psych Appearance: grossly normal and well kempt Mental Status: mental status grossly normal Speech and movement: Normal speech and movement present and Clear speech present Affect: normal affect Attitude: cooperative Thought process: Normal thought process present Thought content: Normal thought content present Insight: Fair insight present (Psych) Judgement: Fair judgement present (Psych) Office Procedures Post Void Residual Post Residual Void Post Void Residual (PVR): 78 [id number] Void Residual by ultrasound Results AMB Urinalysis, Automated UA Leukoctes 0 Munir/uL Last Edit by Aurora Juarez on 06/03/24 13:54 UA Nitrite Last Edit by Aurora Juarez on 06/03/24 13:54 UA Urobilinogen 0.2 mg/dL Last Edit by Aurora Juarez on 06/03/24 13:54 UA Protein mg/dL Last Edit by Aurora Juarez on 06/03/24 13:54 UA pH 0 Last Edit by Aurora Juarez on 06/03/24 13:54 UA Blood 0 Wliian/uL Last Edit by Aurora Juarez on 06/03/24 13:54 UA Specific [place] 1.020 Last Edit by Aurora Juarez on 06/03/24 13:54 UA Ketone Last Edit by Aurora Juarez on 06/03/24 13:54 UA Bilirubin 0 mg/dL Last Edit by Aurora Juarez on 06/03/24 13:54 UA Glucose 0 mg/dL Last Edit by Aurora Juarez on 06/03/24 13:54 Results Reviewed Results Reviewed: Laboratory Last Values Urine pH (Auto) 0 06/03/24 13:52 Specific [place] (Auto) 1.020 06/03/24 13:52 Glucose (UA)(Auto) 0 mg/dL 06/03/24 13:52 Urine Blood (Auto) 0 Wilian/uL 06/03/24 13:52 Urine Bilirubin (Auto) 0 mg/dL 06/03/24 13:52 Urine Urobilinogen (Auto) 0.2 mg/dL 06/03/24 13:52 Leukocyte Esterase (Auto) 0 Munir/uL 06/03/24 13:52 Assessment & Plan Assessment & Plan (1) Urinary urgency: Code(s): R39.15 - Urgency of urination Category: Medical (2) Urinary frequency: Code(s): R35.0 - Frequency of micturition Category: Medical (3) Urinary hesitancy: Code(s): R39.11 - Hesitancy of micturition Category: Medical (4) Elevated PSA: Code(s): R97.20 - Elevated prostate specific antigen [PSA] Category: Medical Plan In office urinalysis results reviewed with the patient today; as noted above. Recent unofficial retroperitoneal ultrasound results reviewed with the patient today; as noted above. Start alfuzosin as discussed and prescribed. Recent PSA results reviewed with the patient today; as noted above. We discussed at length potential causes of elevated PSA as well as lower urinary tract symptoms patient was experiencing. We discussed further interventions as well as risks and benefits of these interventions. Will obtain MRI of the prostate for further assessment evaluation. Will obtain redraw of PSA. Follow-up in 3-4 months with labs and imaging to be completed prior; or sooner with any issues, concerns, and or questions. Orders: Orders AMB Urinalysis Automated Today Z13.9 - Encounter for screening, unspecified Prostate Specific Antigen 3 Months R97.20 - Elevated prostate specific antigen [PSA] AMB Post Void Residual by ultrasound Today R35.0 - Frequency of micturition MR pelvis wo/w con Today R97.20 - Elevated prostate specific antigen [PSA], Z80.42 - Family history of malignant neoplasm of prostate Medications: New alfuzosin ER Take before bedtime 10 mg PO BEDTIME 30 tabs 3RF 30 days N32.0 - Bladder- neck obstruction, N40.1 - Benign prostatic hyperplasia with lower urinary tract symptoms, R33.9 - Retention of urine, unspecified, R35.1 - Nocturia, R39.12 - Poor urinary stream Patient Instructions: The patient had an opportunity to ask questions regarding the treatment plan. All questions were answered. Physical exam, labs, and imaging were discussed and reviewed in detail. As well as risks, benefits, and discussion of treatment choices. No major barriers to understanding were identified. The patient expressed understanding and agreement with the above treatment plan. The patient was made aware they should contact our office by phone for worsening of their current condition, the appearance of new symptoms, or with any questions or concerns. Compliance is encouraged with any medications and follow up testing that is ordered. It is a privilege to be allowed the opportunity to participate in? your urological care.? Again, if you have any questions or concerns If you have any questions or concerns please do not hesitate to contact me. The office is [phone]. This note is constructed using voice recognition software. While every effort has been made to ensure accuracy health administrator errors may have been included. Yours sincerely, LONNIE Bright Coding Level of Care Code Est Pt Level 4 (33532) Diagnoses Urinary urgency R39.15 Urinary frequency R35.0 Urinary hesitancy R39.11 Elevated PSA R97.20 CPT Codes Post Residual Void - PVR CPT Code: 02243-Vuaq Void Residual by ultrasound ([id number])
== END 2024-06-03 14:36 | disposition home or self-care (01) ==
PROVIDERS: PCP Internal Medicine; Visit Provider Nurse Practitioner Family
DX: R39.15 Urgency of urination (principal); R35.0 Frequency of micturition; R39.11 Hesitancy of micturition; R97.20 Elevated prostate specific antigen [PSA]; Z13.9 Encounter for screening, unspecified
CPT/HCPCS: 99214

== ENCOUNTER → 2024-06-03 13:22 | Outpatient (BNVA) | payer BC, SELFPAY | PROVIDERS: PCP Internal Medicine; Visit Provider Nurse Practitioner Family | DX: R39.15 Urgency of urination (principal); R35.0 Frequency of micturition; R39.11 Hesitancy of micturition; R97.20 Elevated prostate specific antigen [PSA] | CPT/HCPCS: 51798; 81003 ==

== ENCOUNTER 2024-08-19 08:06 | Outpatient (REF) | payer BC, SELFPAY ==
[2024-08-19 09:49] LABS: Prostate Specific Antigen 4.47 ng/mL (<0.05-4.0)
== END 2024-08-19 08:07 | disposition home or self-care (01) ==
LOC: HO.LAB 08:06
PROVIDERS: PCP Internal Medicine; Visit Provider Nurse Practitioner Family
DX: R97.20 Elevated prostate specific antigen [PSA] (principal); Z12.5 Encounter for screening for malignant neoplasm of prostate
CPT/HCPCS: 36415; 84153

== ENCOUNTER 2024-08-27 08:30 | Outpatient (REF) | payer BC, SELFPAY ==
--- NOTE | ~2024-08-27 | MR_ITS ---
EXAMINATION: MR PROSTATE WITHOUT THEN WITH IV CONTRAST HISTORY: R97.20 - Elevated prostate specific antigen [PSA] TECHNIQUE: 1.5T body coil survey of the pelvis was performed. Phase array coil imaging of the prostate was performed in multiplanar high resolution axial, coronal, sagittal fast spin echo T2 and axial T1 weighted imaging sequences. Axial diffusion imaging at intermediate and high field performed with ADC mapping. Next, 9 mL Gadavist was given by intravenous infusion, and dynamic axial imaging performed. COMPARISON: There are no prior studies for comparison. CLINICAL DATA: Most recent PSA: 4.47 ng/mL on 08/19/2024 PSA Density: 0.098 ng/mL squared Prostate Biopsy: None reported FINDINGS: Prostate size: 5.3 x 5.0 x 3.3 cm. Calculated prostate volume is 45.5 mL. Hemorrhage: None. Transitional Zone: There is moderate heterogeneous nodular hypertrophy of the transitional zone. Peripheral Zone: There are areas of interest in the left peripheral zone as described below: Lesion #1, measuring 7 mm in the left posteromedial peripheral zone in the mid gland (series 7, image 18): DWI PI-RADS v2.1 score: 4 T2 PI-RADS v2.1 score: 4 DCE PI-RADS v2.1 score: - Overall PI-RADS v2.1 score: 4 Capsular contact: yes Extracapsular extension: None Seminal vesicle invasion: None Neurovascular bundle involvement: None Lesion #2, demonstrating a linear configuration and measuring 9 mm in length in the left posterior lateral peripheral zone at the base (series 7, image 15): DWI PI-RADS v2.1 score: 3 T2 PI-RADS v2.1 score: 3 DCE PI-RADS v2.1 score: - Overall PI-RADS v2.1 score: 3 Capsular contact: yes Extracapsular extension: None Seminal vesicle invasion: None Neurovascular bundle involvement: None Seminal Vesicles/Ejaculatory Ducts: Symmetric and normal in signal and caliber. Pelvic Lymph Nodes: No obturator or internal iliac lymph nodes meeting size criteria for adenopathy. Marrow Signal: Normal marrow signal and enhancement without focal lesion identified. MR/MR Prostate wo/w con IMPRESSION: Focus of abnormal signal intensity in the left posteromedial peripheral zone in the mid gland, highly suspicious for clinically significant prostate carcinoma. Additional indeterminate focus in the left posterolateral peripheral zone at the base. If imaging guided biopsy is to be performed, sampling of this region is also recommended. PI-RADS 4: High (clinically significant cancer is likely to be present) PI-RADS Assessment Categories PI-RADS 1: Very low (clinically significant cancer is highly unlikely to be present) PI-RADS 2: Low (clinically significant cancer is unlikely to be present) PI-RADS 3: Intermediate (the presence of clinically significant cancer is equivocal) PI-RADS 4: High (clinically significant cancer is likely to be present) PI-RADS 5: Very high (clinically significant cancer is highly likely to be present) [employer]. MR Prostate Imaging Reporting and Data System version 2.1. [email or web address] Electronically signed by: Te Lozoya MD 08/27/2024 10:32 AM EDT
[2024-08-27] MEDS: gadobutroL 10 ML VIAL IVPUSH (09:48)
== END 2024-08-27 08:31 | disposition home or self-care (01) ==
LOC: HO.MRI 08:30
PROVIDERS: PCP Internal Medicine; Visit Provider Nurse Practitioner Family
DX: R97.20 Elevated prostate specific antigen [PSA] (principal); Z80.42 Family history of malignant neoplasm of prostate
CPT/HCPCS: 72197; A9585

== ENCOUNTER → 2024-08-27 08:30 | Outpatient (BNV) | payer BC, SELFPAY | PROVIDERS: PCP Internal Medicine; Visit Provider Radiology Diagnostic Radiology | DX: R97.20 Elevated prostate specific antigen [PSA] (principal) | CPT/HCPCS: 72197 ==

== ENCOUNTER 2024-09-02 12:40 | Outpatient (AMB) | payer BC, SELFPAY ==
--- NOTE | 2024-09-02 12:52 | A.OFFVIS_ITS ---
Intake Visit Reasons: 3 month follow up/ PSA/MRI(set) Intake Note: Patient presents today for follow up visit for incontinence, psa lab/MRI. Urology Medications: none Blood Thinner: none * PVR: 27ml Miniature Set Builder Required: No Accompanied by: Self / Same As Patient Allergies No Known Allergies Allergy (Verified 09/02/24 13:23) Medication List - Last Reconciled 09/02/24 by LONNIE Bright alfuzosin ER 10 mg PO BEDTIME 30 days levofloxacin 500 mg PO DAILY 3 days HPI Comments Details: Geovany is a very pleasant 43-year-old male patient of Dr. Cruz who was accompanied by his at today's office visit. He has a past medical history of elevated LFTs, mixed hyperlipidemia, and low-back pain. He presents to the office today for follow-up of his lower urinary tract symptoms and elevated PSA. In discussion with the patient today he reports to be doing and feeling well. Recent prostate MRI results reviewed with the patient and his today 09/20 focus of abnormal signal intensity in the left posteromedial peripheral zone in the mid gland, highly suspicious for clinically significant prostate carcinoma. Additional indeterminate focus in the left posterolateral peripheral zone at the base. PI-RADS 4. PSAs are as follows: 09/19 3.9, 05/21 3.9, 08/20 4.5 During initial appointment patient had denied any family history of prostate cancer however he reports recently finding out maternal grandfather had prostate cancer. We discussed at length potential causes of lower urinary tract symptoms patient has been experiencing as well as elevated PSA. All questions were answered. SARWAT during last office visit was performed and noted to be smooth, no masses or nodules palpated however right side firmer than left. In office urinalysis results reviewed with the patient today. We discussed further intervention to include prostate biopsy. Risks and benefits of this intervention was discussed. He otherwise offers no other issues or concerns at this time. [facility] Medical History Overweight (BMI 25.0-29.9) Elevated LFTs Impaired fasting glucose Mixed hyperlipidemia Bilateral shoulder pain History of low back pain Family History Father No problems noted. 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 Cognitive needs: No Hearing needs: No Vision needs: No Review of Systems Const All systems reviewed & are unremarkable except as noted in HPI and below Physical Exam Const General: cooperative, healthy appearing, comfortable, no acute distress, well developed, alert and awake Orientation/consciousness: patient oriented x3 Limitations: no limitations HEENT Head: Yes normal to inspection, Yes normocephalic and Yes atraumatic Ears: hearing grossly normal bilaterally Eyes General: appearance normal, both eyes and all related structures Neck Neck: Yes normal visual inspection and Yes trachea midline Chest Chest palpation & inspection: normal inspection of the chest Resp Effort & Inspection: normal respiratory effort and able to speak in complete sentences Cardio Rate: regular rate GI Inspection: Yes normal to inspection General: Yes no CVA tenderness Back/Spine/Pelvis Back: no CVA tenderness Skin General skin exam: no rashes or lesions noted Neuro General: patient oriented x3 Extrem General: Yes normal to inspection Psych Appearance: grossly normal and well kempt Mental Status: mental status grossly normal Speech and movement: Normal speech and movement present and Clear speech present Affect: normal affect Attitude: cooperative Thought process: Normal thought process present Thought content: Normal thought content present Insight: Fair insight present (Psych) Judgement: Fair judgement present (Psych) Office Procedures Post Void Residual Post Residual Void Post Void Residual (PVR): 27 [id number] Void Residual by ultrasound Results AMB Urinalysis, Automated UA Leukoctes 0 Munir/uL Last Edit by Cecilia Varghese CMA on 09/02/24 13:02 UA Nitrite Negative Last Edit by Cecilia Varghese CMA on 09/02/24 13:02 UA Urobilinogen 0.2 mg/dL Last Edit by Cecilia Varghese CMA on 09/02/24 13:02 UA Protein 0 mg/dL Last Edit by Cecilia Varghese CMA on 09/02/24 13:02 UA pH 6.0 Last Edit by Cecilia Varghese, DORI on 09/02/24 13:02 UA Blood 0 Wilian/uL Last Edit by Cecilia Varghese, DORI on 09/02/24 13:02 UA Specific [place] 1.010 Last Edit by Cecilia Varghese, DORI on 09/02/24 13:02 UA Ketone Negative Last Edit by Cecilia Varghese, DORI on 09/02/24 13:02 UA Bilirubin 0 mg/dL Last Edit by Cecilia Varghees CMA on 09/02/24 13:02 UA Glucose 0 mg/dL Last Edit by Cecilia Varghese CMA on 09/02/24 13:02 Results Reviewed Results Reviewed: Laboratory Last Values Urine pH (Auto) 6.0 09/02/24 12:56 Specific [place] (Auto) 1.010 09/02/24 12:56 Urine Protein (Auto) 0 mg/dL 09/02/24 12:56 Glucose (UA)(Auto) 0 mg/dL 09/02/24 12:56 Urine Ketones (Auto) Negative 09/02/24 12:56 Urine Blood (Auto) 0 Wilian/uL 09/02/24 12:56 Urine Nitrite (Auto) Negative 09/02/24 12:56 Urine Bilirubin (Auto) 0 mg/dL 09/02/24 12:56 Urine Urobilinogen (Auto) 0.2 mg/dL 09/02/24 12:56 Leukocyte Esterase (Auto) 0 Munir/uL 09/02/24 12:56 Date of Service: 08/27/24 Procedure(s): MR Prostate wo/w con FINDINGS: Prostate size: 5.3 x 5.0 x 3.3 cm. Calculated prostate volume is 45.5 mL. Hemorrhage: None. Transitional Zone: There is moderate heterogeneous nodular hypertrophy of the transitional zone. Peripheral Zone: There are areas of interest in the left peripheral zone as described below: Lesion #1, measuring 7 mm in the left posteromedial peripheral zone in the mid gland (series 7, image 18): DWI PI-RADS v2.1 score: 4 T2 PI-RADS v2.1 score: 4 DCE PI-RADS v2.1 score: - Overall PI-RADS v2.1 score: 4 Capsular contact: yes Extracapsular extension: None Seminal vesicle invasion: None Neurovascular bundle involvement: None Lesion #2, demonstrating a linear configuration and measuring 9 mm in length in the left posterior lateral peripheral zone at the base (series 7, image 15): DWI PI-RADS v2.1 score: 3 T2 PI-RADS v2.1 score: 3 DCE PI-RADS v2.1 score: - Overall PI-RADS v2.1 score: 3 Capsular contact: yes Extracapsular extension: None Seminal vesicle invasion: None Neurovascular bundle involvement: None Seminal Vesicles/Ejaculatory Ducts: Symmetric and normal in signal and caliber. Pelvic Lymph Nodes: No obturator or internal iliac lymph nodes meeting size criteria for adenopathy. Marrow Signal: Normal marrow signal and enhancement without focal lesion identified. IMPRESSION: Focus of abnormal signal intensity in the left posteromedial peripheral zone in the mid gland, highly suspicious for clinically significant prostate carcinoma. Additional indeterminate focus in the left posterolateral peripheral zone at the base. If imaging guided biopsy is to be performed, sampling of this region is also recommended. PI-RADS 4: High (clinically significant cancer is likely to be present) PI-RADS Assessment Categories PI-RADS 1: Very low (clinically significant cancer is highly unlikely to be present) PI-RADS 2: Low (clinically significant cancer is unlikely to be present) PI-RADS 3: Intermediate (the presence of clinically significant cancer is equivocal) PI-RADS 4: High (clinically significant cancer is likely to be present) PI-RADS 5: Very high (clinically significant cancer is highly likely to be present) Assessment & Plan Assessment & Plan (1) Family history of prostate cancer: Code(s): Z80.42 - Family history of malignant neoplasm of prostate Category: Medical (2) Urinary urgency: Code(s): R39.15 - Urgency of urination Category: Medical (3) Urinary frequency: Code(s): R35.0 - Frequency of micturition Category: Medical (4) Urinary hesitancy: Code(s): R39.11 - Hesitancy of micturition Category: Medical (5) Elevated PSA: Code(s): R97.20 - Elevated prostate specific antigen [PSA] Category: Medical Plan: Plan Risks and benefits regarding trans rectal ultrasound with prostate biopsy were discussed.? Options of continued surveillance, no treatment and biopsy were offered. The risks include but are not limited to, urinary tract infection, sepsis, difficulty urinating, bleeding into the rectum or bladder that requires intervention and transfusion,and failure to diagnose prostate cancer. The patient understands the options and the risks involved. They wish to proceed. Printed information was provided to ensure he remains off anticoagulation for the appropriate length of time. He may require cardiology or PCP clearance.? An antibiotic will be administered prior to, and following the procedure Plan In office urinalysis results with the patient today; as noted above. Recent PSA results reviewed with the patient today; as noted above. Recent MRI results reviewed with the patient today; as noted above. We discussed prostate biopsy; risks and benefits. All questions were answered. Prescription provided for antibiotic therapy and discussed specific instructions regarding appropriate use of medication. Will schedule for prostate biopsy. Follow-up per doctor's orders; or sooner with any issues, concerns, and or questions. Orders: Orders AMB Urinalysis Automated Today R35.0 - Frequency of micturition AMB Post Void Residual by ultrasound Today N40.1 - Benign prostatic hyperplasia with lower urinary tract symptoms, R35.0 - Frequency of micturition Medications: New levofloxacin take 1 tablet day before procedure, 1 tablet day of procedure and 1 tablet day after procedure 500 mg PO DAILY 3 tabs 0RF 3 days Patient Instructions: The patient had an opportunity to ask questions regarding the treatment plan. All questions were answered. Physical exam, labs, and imaging were discussed and reviewed in detail. As well as risks, benefits, and discussion of treatment choices. No major barriers to understanding were identified. The patient expressed understanding and agreement with the above treatment plan. The patient was made aware they should contact our office by phone for worsening of their current condition, the appearance of new symptoms, or with any questions or concerns. Compliance is encouraged with any medications and follow up testing that is ordered. It is a privilege to be allowed the opportunity to participate in? your urological care.? Again, if you have any questions or concerns If you have any questions or concerns please do not hesitate to contact me. The office is [phone]. This note is constructed using voice recognition software. While every effort has been made to ensure accuracy sailing master errors may have been included. Yours sincerely, LONNIE Bright Coding Level of Care Code Est Pt Level 4 (45274) Diagnoses Family history of prostate cancer Z80.42 Urinary urgency R39.15 Urinary frequency R35.0 Urinary hesitancy R39.11 Elevated PSA R97.20 CPT Codes Post Residual Void - PVR CPT Code: 46800-Yobh Void Residual by ultrasound ([id number])
== END 2024-09-02 13:22 | disposition home or self-care (01) ==
LOC: HO.HUSH 12:41
PROVIDERS: PCP Internal Medicine; Visit Provider Nurse Practitioner Family
DX: Z80.42 Family history of malignant neoplasm of prostate (principal); R39.15 Urgency of urination; R35.0 Frequency of micturition; R39.11 Hesitancy of micturition; R97.20 Elevated prostate specific antigen [PSA]
CPT/HCPCS: 99214

== ENCOUNTER → 2024-09-02 12:40 | Outpatient (BNVA) | payer BC, SELFPAY | PROVIDERS: PCP Internal Medicine; Visit Provider Nurse Practitioner Family | DX: R39.15 Urgency of urination (principal); R35.0 Frequency of micturition; R39.11 Hesitancy of micturition; R97.20 Elevated prostate specific antigen [PSA]; Z80.42 Family history of malignant neoplasm of prostate | CPT/HCPCS: 51798; 81003 ==

== ENCOUNTER 2024-09-16 11:22 | Outpatient (AMB) | payer BC, SELFPAY ==
--- NOTE | 2024-09-16 11:26 | A.OFFPC_ITS ---
Vital Signs 09/16/24 11:27 Height 5 ft 8.5 in Weight 188 lb 8 oz BMI 28.2 BP 130/82 Blood Pressure Location Lt brachial Position Sitting Pulse 60 Pulse Source Pulse Oximeter Temp 97.3 F Temp Source Temporal Artery Scan Pulse Oximetry (%) 97 Oxygen Delivery Method Room Air Intake Visit Reasons: BPH Intake Note: Patient is here to follow up on BPH. 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: Not Required per policy Accompanied by: Self / Same As Patient Allergies No Known Allergies Allergy (Verified 09/16/24 11:45) Medication List - Last Reconciled 09/16/24 by AJ Barraza alfuzosin ER 10 mg PO BEDTIME 30 days levofloxacin 500 mg PO DAILY 3 days Tobacco use date assessed: 09/16/24 Dental Screening Dental Screen Date: 09/16/24 Did you have a dental visit in the last 12 months?: Yes Did you have a dental problem in the last 6 months where you did not have access to dental care?: No Was dental information given to patient?: Patient has dentist HPI BPH HPI Details The patient is a 43-year-old male presenting with follow-up concerns regarding prostate issues and blood pressure management. He reports a history of elevated PSA and has engaged with a urologist for further evaluation of potential prostate cancer, with an MRI indicating a significant risk. The patient experiences urinary urgency, which has been partially managed with medication, allowing for improved nocturnal symptoms. He is on antibiotics in preparation for an upcoming prostate biopsy. Regarding his hypertension, the patient has previously noted mild triglyceride elevation and is implementing lifestyle changes, including increasing exercise and diet adjustments, which include limiting salt and caffeine intake. He denies any recent symptoms such as chest pain or respiratory issues. He has a history of heartburn triggered by certain foods, managed through dietary adjustments. [facility] Medical History Overweight (BMI 25.0-29.9) Elevated LFTs Impaired fasting glucose Mixed hyperlipidemia Bilateral shoulder pain History of low back pain Surgical History No pertinent past surgical history Family History Father No problems noted. 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 1. Little interest or pleasure in doing things: not at all 2. Feeling down, depressed, or hopeless: not at all 3. Trouble falling or staying asleep, or sleeping too much: not at all 4. Feeling tired or having little energy: not at all 5. Poor appetite or overeating: not at all 6. Feeling bad about yourself - or that you are a failure or have let yourself or your family down: not at all 7. Trouble concentrating on things, such as reading the newspaper or watching television: not at all 8. Moving or speaking so slowly that other people could have noticed. Or the opposite - being so fidgety or restless that you have been moving around a lot more than usual: not at all 9. Thoughts that you would be better off or of hurting yourself in some way: not at all Total score: 0 Depression Screening Interpretation: Negative Depression Screening Done: Yes 14004 - PHQ-9 Billing: Yes Source: Developed by Drs. Te Gonzalez, Itzel Velasco, Logan Peña and colleagues, with an educational mateo from [employer]. Thrive Questionnaire Date Thrive assessed: 09/16/24 I am a: Patient What is your living situation today?: I have a steady place to live Within the past 12 months, did the food you bought not last and you didn't have the money to get more?: Never true Within the past 12 months, did you worry whether your food would run out before you got money to buy more?: Never true Do you have trouble paying for medicines?: No Do you have trouble getting transportation to medical appointments?: No Do you have trouble paying your heating and electricity bill?: No Do you have trouble taking care of your child, family member or friend?: No Do you have trouble with day-to-day activities such as bathing, preparing meals, shopping, managing finances, etc.?: No Are you currently unemployed and looking for a job?: No Are you interested in more education?: No Please select the resources that you would like help with: None Currently or been in a relationship where the following occur: No concerns reported THRIVE Score: 0 AUDIT C Alcohol Use Questionnaire (AUDIT-C) 1. How often do you have a drink containing alcohol?: Never 3. How often do you have six or more drinks on one occasion?: Never Total Score: 0 RERE-7 AMB Questionnaire RERE-7 Date RERE - 7 assessed: 09/16/24 Feeling nervous, anxious, or on edge: 0 = Not at all Not being able to stop or control worryin = Not at all Worrying too much about different things: 0 = Not at all Trouble relaxin = Not at all Being so restless that it is hard to sit still: 0 = Not at all Becoming easily annoyed or irritable: 0 = Not at all Feeling afraid as if something awful might happen: 0 = Not at all Total RERE-7 score (0-4 normal; 5-9 mild; 10-14 moderate; 15-21 severe): 0 Source: Developed by Drs. Te Gonzalez, Itzel Velasco, Logan Peña and colleagues, with an educational mateo from [employer]. RERE-7 Assessment Billing RERE-7 Assessment Tool: RERE-7 Assessment 96803 Review of Systems Const Denies headache(s) Eyes Denies loss of vision ENT Denies vertigo, Denies dizziness, Denies headache(s) and Denies sore throat Card Denies chest pain, Denies leg edema and Denies lightheadedness Resp Denies cough, Denies hemoptysis and Denies wheezing GI Denies abdominal pain, Denies melena, Denies constipation, Reports heartburn (with certain foods), Denies diarrhea and Denies vomiting Denies dysuria, Denies urinary frequency and Reports urinary urgency (improved since started on alfuzosin ER) Musc Denies arthralgias, Denies joint swelling, Denies numbness and Denies tingling Neuro Denies Abnormal speech present, Denies behavioral changes, Denies vertigo, Denies dizziness, Denies headache(s), Denies loss of vision, Denies memory loss, Denies numbness and Denies tingling Psych Denies anxiety, Denies behavioral changes, Denies depression, Denies memory loss and Denies panic attacks Kj/Lymph Denies easy bleeding and Denies easy bruising Aller/Immun Denies wheezing Physical exam (Primary Care) Vital Signs: Last Vital Signs Temp 97.3 F 09/16/24 11:27 Pulse 60 09/16/24 11:27 BP 130/82 09/16/24 11:27 Pulse Ox 97 09/16/24 11:27 Oxygen Delivery Method Room Air 09/16/24 11:27 BMI result Body Mass Index 28.2 Tobacco/Smoking Status: Tobacco use Status Tobacco use date assessed 09/16/24 09/16/24 11:34 Patient Tobacco Use Status Never used Tobacco 09/16/24 11:34 e-Cigarette/Vaping Use Never Used 09/16/24 11:34 PHQ-9: PHQ-9 Score PHQ-9: Total score 0 09/16/24 11:59 Depression Screening Interpretation: Negative Thrive Assessment: Date of Thrive Assessment Date Thrive assessed 09/16/24 09/16/24 11:34 Currently or been in a relationship where the following occur: No concerns reported Const General: healthy appearing, no acute distress, alert and awake Nutritional Appearance: well nourished Orientation/consciousness: oriented to person, oriented to place and oriented to time HENMT Ears: external ears normal General nose exam: Normal external nose present Eyes Conjunctivae: conjunctivae normal Sclerae: sclerae normal Pupils: Equal, round and reactive pupils present Neck Neck: Yes no lymphadenopathy and Yes no JVD Thyroid: Thyroid normal Carotids: no bruits Resp Effort & Inspection: normal respiratory effort and not tachypneic Auscultation: no crackles, no rales, no rhonchi and no wheezes Cardio Rate: regular rate Rhythm: regular rhythm Heart sounds: no murmurs and normal S1 and S2 GI Palpation (GI): Soft to palpation, nontender, no hepatomegaly and no splenomegaly Auscultation: normal bowel sounds Skin General skin exam: no rashes or lesions noted and dry skin Neuro General: oriented to person, oriented to place and oriented to time Cranial nerves: Yes Equal, round and reactive pupils present Speech: No Abnormal speech present Gait exam (Neuro): Normal gait present Motor exam (neuro): no tremor noted Extrem Right upper extremity: full ROM Left upper extremity: full ROM Right lower extremity: full ROM; no edema Left lower extremity: full ROM; no edema Psych Mental Status: mental status grossly normal Speech and movement: Normal speech and movement present Affect: normal affect Attitude: cooperative Thought process: Normal thought process present Coding Level of Care Code Est Pt Level 3 (92866) Diagnoses Benign prostatic hyperplasia with urinary frequency N40.1; R35.0 Lower urinary tract symptom detail: urinary frequency Elevated PSA R97.20 Urinary urgency R39.15 Mixed hyperlipidemia E78.2 Impaired fasting glucose R73.01 Additional Codes PHQ-9 - 58170 - PHQ-9 Billing: Yes ([id number]) RERE-7 Assessment Billing - RERE-7 Assessment Tool: RERE-7 Assessment 13552 ([id number]) Time Spent (min) 31 Assessment & Plan Assessment & Plan (1) Benign prostatic hyperplasia with lower urinary tract symptoms: Code(s): N40.1 - Benign prostatic hyperplasia with lower urinary tract symptoms Category: Medical Qualifiers: Lower urinary tract symptom detail: urinary frequency Qualified Code(s): N40.1 - Benign prostatic hyperplasia with lower urinary tract symptoms; R35.0 - Frequency of micturition (2) Elevated PSA: Code(s): R97.20 - Elevated prostate specific antigen [PSA] Category: Medical (3) Urinary urgency: Code(s): R39.15 - Urgency of urination Category: Medical (4) Mixed hyperlipidemia: Code(s): E78.2 - Mixed hyperlipidemia Category: Medical (5) Impaired fasting glucose: Code(s): R73.01 - Impaired fasting glucose Category: Medical Plan The visit addressed morales areas of prostate health and hypertension management. The patient is preparing for a prostate biopsy, following concerns over elevated PSA levels and MRI findings suggesting prostate cancer risk. He is on antibi otics for biopsy preparation and managing urinary urgency with existing medication. Hypertension, HLD, and impaired glucose are being addressed via lifestyle modifications, including increased exercise and dietary adjustments. Heartburn is managed through dietary control and timing of meals. The patient's blood pressure remains within range currently, and no additional medication adjustments were necessary at this time. A follow-up in six months is scheduled, with lab work to be completed beforehand. Patient was informed and verbally consented to the use of an ambient scribe for clinic note documentation during this visit. Orders: Orders Complete Blood Count Auto Diff 6 Months E66.3 - Overweight, E78.2 - Mixed hyperlipidemia, N40.1 - Benign prostatic hyperplasia with lower urinary tract symptoms, R35.0 - Frequency of micturition, R39.15 - Urgency of urination, R73.01 - Impaired fasting glucose, R79.89 - Other specified abnormal findings of blood chemistry Comprehensive [place]. Panel Fast 6 Months E66.3 - Overweight, E78.2 - Mixed hyperlipidemia, N40.1 - Benign prostatic hyperplasia with lower urinary tract symptoms, R35.0 - Frequency of micturition, R39.15 - Urgency of urination, R73.01 - Impaired fasting glucose, R79.89 - Other specified abnormal findings of blood chemistry UA CC w/rflx Micro + Cult 6 Months E66.3 - Overweight, E78.2 - Mixed hyperlipidemia, N40.1 - Benign prostatic hyperplasia with lower urinary tract symptoms, R35.0 - Frequency of micturition, R39.15 - Urgency of urination, R73.01 - Impaired fasting glucose, R79.89 - Other specified abnormal findings of blood chemistry TSH reflex Free T4 6 Months E66.3 - Overweight, E78.2 - Mixed hyperlipidemia, N40.1 - Benign prostatic hyperplasia with lower urinary tract symptoms, R35.0 - Frequency of micturition, R39.15 - Urgency of urination, R73.01 - Impaired fasting glucose, R79.89 - Other specified abnormal findings of blood chemistry Lipid Panel 6 Months E66.3 - Overweight, E78.2 - Mixed hyperlipidemia, N40.1 - Benign prostatic hyperplasia with lower urinary tract symptoms, R35.0 - Frequency of micturition, R39.15 - Urgency of urination, R73.01 - Impaired fasting glucose, R79.89 - Other specified abnormal findings of blood chemistry Vitamin D 25-OH Total 6 Months E66.3 - Overweight, E78.2 - Mixed hyperlipidemia, N40.1 - Benign prostatic hyperplasia with lower urinary tract symptoms, R35.0 - Frequency of micturition, R39.15 - Urgency of urination, R73.01 - Impaired fasting glucose, R79.89 - Other specified abnormal findings of blood chemistry Glucose Fasting 6 Months E66.3 - Overweight, E78.2 - Mixed hyperlipidemia, N40.1 - Benign prostatic hyperplasia with lower urinary tract symptoms, R35.0 - Frequency of micturition, R39.15 - Urgency of urination, R73.01 - Impaired fasting glucose, R79.89 - Other specified abnormal findings of blood chemistry Patient Instructions: - Prepare for upcoming prostate biopsy as scheduled - Continue daily medication to manage urinary urgency - Maintain current lifestyle changes: increased exercise, reduced salt and caffeine intake - Monitor diet and mealtime to manage heartburn effectively - Follow up in six months and complete lab tests before the appointment
[2024-09-16 11:27] VITALS: BP 130/82; PULSE 60; TEMP 36.3; O2SAT 97; BMI 28.2
== END 2024-09-16 12:02 | disposition home or self-care (01) ==
LOC: HO.HMCH 11:23
PROVIDERS: PCP Internal Medicine
DX: N40.1 Benign prostatic hyperplasia with lower urinary tract symptoms (principal); R35.0 Frequency of micturition; R97.20 Elevated prostate specific antigen [PSA]; R39.15 Urgency of urination; E78.2 Mixed hyperlipidemia; R73.01 Impaired fasting glucose

== ENCOUNTER → 2024-09-16 11:22 | Outpatient (BNVA) | payer BC, SELFPAY | PROVIDERS: PCP Internal Medicine | DX: N40.1 Benign prostatic hyperplasia with lower urinary tract symptoms (principal); R35.0 Frequency of micturition; R39.15 Urgency of urination; E78.2 Mixed hyperlipidemia; R73.01 Impaired fasting glucose; R97.20 Elevated prostate specific antigen [PSA] | CPT/HCPCS: 96127 ==

== ENCOUNTER 2024-09-17 07:43 | Outpatient (REF) | payer BC, SELFPAY ==
--- NOTE | 2024-09-17 08:23 | P.OP_ITS ---
Operative Note Operative Note Date of Service: 09/17/24 Narrative: Preoperative diagnosis: Elevated PSA Postoperative diagnosis: Elevated PSA Procedure: 1. transrectal ultrasound measurement of prostate 2. transrectal ultrasound-guided pudendal nerve block 3. transrectal ultrasound-guided prostate biopsy 12 core Surgeon: Dr. Mina Bose Anesthetic: 10cc 1% lidocaine Indications for procedure: Elevated PSA 4.4 Counselling: Technical aspects, risks and benefits of proposed procedure were discussed in full. All questions have been answered, written consent has been obtained and patient agrees to proceed. Procedure: The patient was brought into the procedure area and placed in a left lateral decubitus position. Patient identity confirmed. Perioperative antibiotics confirmed. Safety pause time out performed. SARWAT was performed to dilate rectal sphincter Iodine 10cc with 60 cc gel was placed per rectum to reduce infection risk using a catheter tip syringe. 8 Hz Juan rectal end-fire ultrasound probe was placed transrectally without difficulty. The prostate was visualized. Seminal vesicles were normal. Prostate margins were clearly demarcated. Bladder was seen superiorly. No cystic structures were noted No calcifications were noted at the surgical margin The prostate was otherwise homogeneous in nature - clearly demarcated peripheral zone, whorls within prominent median lobe tissue consistent with BPH response The prostate was measured in 3 dimensions Prostatic Width: 5.4 cm Prostatic Height: 4.5 cm Urethral Length: 4.8 cm Total volume equals : 60 ml An ultrasound-guided pudendal nerve block was performed using a 22 gauge spinal needle in the sagittal plane. 4 cc of 1% lidocaine placed at the junction of each seminal vesicle and 2 cc placed at the apex of the prostate. A 12 core biopsy was performed with 6 cores each side using an 18 gauge prostate biopsy gun. Two cores each were taken at the prostate apex, mid and base on each side. Cores were spaced between lateral and medial aspects. Each core was examined as placed on specimen foam as part of inspector quality assurance to ensure a minimum 1 cm of length and minimal discontinuity. He tolerated the procedure well with minimal rectal bleeding. Blood pressure remained stable following procedure. He was able to ambulate to bathroom after 5 minutes. Printed instructions regarding antibiotic use and common adverse events from the procedure such as low-grade temperature, potential infection and bleeding were given. He understands to call the office or go to an emergency room should any of these events arise. Pathology: 12 core prostate biopsy. CPT code 19869: Transrectal ultrasound; this is a diagnostic test for evaluation of the prostate and surrounding structures, looking for abnormalities or suspicious areas worrisome for cancer CPT code 45850: Biopsy, prostate; needle or punch, single or multiple, any approach CPT code 68679: Ultrasonic guidance for needle placement (eg, biopsy, aspiration, injection, localization device), imaging supervision and interpretation
[2024-09-17] MEDS: Lidocaine HCl 1 % MPF 5 ML VIAL 10 ML SUBCUT (08:29)
== END 2024-09-17 07:44 | disposition home or self-care (01) ==
LOC: HO.US 07:43
PROVIDERS: PCP Internal Medicine; Visit Provider Urology
DX: R97.20 Elevated prostate specific antigen [PSA] (principal)
CPT/HCPCS: 55700; 76942; 88305; J2003

== ENCOUNTER → 2024-09-17 07:43 | Outpatient (BNV) | payer BC, SELFPAY | PROVIDERS: PCP Internal Medicine; Visit Provider Urology | DX: R97.20 Elevated prostate specific antigen [PSA] (principal) | CPT/HCPCS: 55700; 76872; 76942 ==

== ENCOUNTER 2024-10-02 09:05 | Outpatient (AMB) | payer BC, SELFPAY ==
--- NOTE | 2024-10-02 09:05 | MHC.OFFVIS ---
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 He is a patient of Dr. Cruz. He seen for the following urologic conditions - elevated PSA - suspicious prostate lesion on MRI - lower urinary tract symptoms Telemedicine Evaluation 15 min Consultation [employer] [place] Video Discussed prostate biopsy results 60 g prostate with negative biopsy Reassurance provided Start finasteride with alfuzosin Follow-up 6 months with PSA and nurse-practitioner Elevated PSA PSA 09/19 3.9, 05/21 3.9, 08/20 4.5 Imaging 08/20 MRI prostate - focus of abnormal signal intensity in the left posteromedial peripheral zone in the mid gland, highly suspicious for clinically significant prostate carcinom [facility] Medical History Overweight (BMI 25.0-29.9) Elevated LFTs Impaired fasting glucose Mixed hyperlipidemia Bilateral shoulder pain History of low back pain Surgical History No pertinent past surgical history Family History Father No problems noted. 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 Cognitive needs: No Hearing needs: No Vision needs: No Review of Systems Const All systems reviewed & are unremarkable except as noted in HPI and below Reports no additional complaints Resp Reports no additional complaints GI Reports no additional complaints Reports as per HPI Musc Reports no additional complaints Physical Exam Telemedicine evaluation Appropriate responses Regular breathing rate and rhythm HEENT Head: Yes normal to inspection Ears: hearing grossly normal bilaterally Eyes General: appearance normal, both eyes and all related structures Neck Neck: Yes normal visual inspection Chest Chest palpation & inspection: normal inspection of the chest Resp Effort & Inspection: normal respiratory effort and able to speak in complete sentences Telehealth Telehealth Telehealth Platform: [employer] Location of provider rendering services: practice address Location of patient: address on file Patient Identification confirmed using: Name, : Yes Telehealth method: video Patient verbally consented to treatment: Yes Patient verbally consented to billing insurance company: Yes Patient informed of any privacy concerns related to visit: Yes Minutes spent on Phone/Video with Pt.: 15 Assessment & Plan Assessment & Plan (1) Elevated PSA: Code(s): R97.20 - Elevated prostate specific antigen [PSA] Category: Medical (2) Benign prostatic hyperplasia with lower urinary tract symptoms: Code(s): N40.1 - Benign prostatic hyperplasia with lower urinary tract symptoms Category: Medical Qualifiers: Lower urinary tract symptom detail: urinary frequency Qualified Code(s): N40.1 - Benign prostatic hyperplasia with lower urinary tract symptoms; R35.0 - Frequency of micturition Plan Six-month follow-up Orders: Orders PSA,Total (Free>4and<10) 6 Months N40.1 - Benign prostatic hyperplasia with lower urinary tract symptoms, R35.0 - Frequency of micturition Medications: New finasteride 5 mg PO DAILY 90 days 90 tabs 1RF N13.8 - Other obstructive and reflux uropathy, N40.1 - Benign prostatic hyperplasia with lower urinary tract symptoms, R33.9 - Retention of urine, unspecified, R35.0 - Frequency of micturition Patient Instructions: This note is constructed using voice recognition software. While every effort has been made to ensure accuracy ink blender errors may have been included. Imaging studies, laboratory and physical exam results were discussed and reviewed in detail. No major barriers to patient understanding were identified. An opportunity to ask questions regarding the treatment plan was provided. All questions were answered. The patient expressed understanding and agreement with the above treatment plan. The patient is aware they should contact our office by phone for worsening of their current condition or the appearance of new urologic symptoms. Compliance is encouraged with any medications and followup testing that is ordered. It is a privilege to participate in the urologic care of your patient. If you have any questions or concerns regarding treatment for the above conditions, or other urologic issues, please do not hesitate to contact me. The office telephone contact is [phone]. Sincerely, Dr Mina Bose MD, [facility] - Urology Compassionate Specialist Care for the Genitourinary System Coding Level of Care Code Tele Est Pt Level 4 (74134) Diagnoses Elevated PSA R97.20 Benign prostatic hyperplasia with urinary frequency N40.1; R35.0 Lower urinary tract symptom detail: urinary frequency
== END 2024-10-02 11:32 | disposition home or self-care (01) ==
LOC: HO.HUSH 09:05
PROVIDERS: PCP Internal Medicine; Visit Provider Urology
DX: R97.20 Elevated prostate specific antigen [PSA] (principal); N40.1 Benign prostatic hyperplasia with lower urinary tract symptoms; R35.0 Frequency of micturition
CPT/HCPCS: 99214

== ENCOUNTER 2025-03-17 09:15 | Outpatient (AMB) | payer BC, SELFPAY ==
[2025-03-17 09:31] VITALS: BP 102/76; PULSE 51; O2SAT 98; BMI 28.8
--- NOTE | 2025-03-17 09:31 | A.OFFPC_ITS ---
Vital Signs 03/17/25 09:31 Height 5 ft 8.5 in Weight 192 lb 4 oz BMI 28.8 BP 102/76 Blood Pressure Location Lt brachial Position Sitting Pulse 51 Pulse Source Pulse Oximeter Pulse Oximetry (%) 98 Oxygen Delivery Method Room Air Intake Visit Reasons: bph/hld with Dr. Cruz Customer Services Manager Required: No Accompanied by: Self / Same As Patient Allergies No Known Allergies Allergy (Verified 03/17/25 09:58) Medication List - Last Reconciled 03/17/25 by Scar Cruz MD alfuzosin ER 10 mg PO BEDTIME 90 days finasteride 5 mg PO DAILY 90 days Tobacco use date assessed: 03/17/25 Dental Screening Dental Screen Date: 03/17/25 Did you have a dental visit in the last 12 months?: Yes Did you have a dental problem in the last 6 months where you did not have access to dental care?: No Was dental information given to patient?: Patient has dentist HPI bph/hld with Dr. Cruz HPI Details Patient comes in today for his follow up visit States that he currently feels okay He denies any headaches or dizziness Denies any chest pains, no SOB No nausea/vomiting, no abdominal pain No change in bowel habits noted [facility] Medical History Overweight (BMI 25.0-29.9) Elevated LFTs Impaired fasting glucose Mixed hyperlipidemia Bilateral shoulder pain History of low back pain Surgical History No pertinent past surgical history Family History Father No problems noted. 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 1. Little interest or pleasure in doing things: not at all 2. Feeling down, depressed, or hopeless: not at all 3. Trouble falling or staying asleep, or sleeping too much: not at all 4. Feeling tired or having little energy: not at all 5. Poor appetite or overeating: not at all 6. Feeling bad about yourself - or that you are a failure or have let yourself or your family down: not at all 7. Trouble concentrating on things, such as reading the newspaper or watching television: not at all 8. Moving or speaking so slowly that other people could have noticed. Or the opposite - being so fidgety or restless that you have been moving around a lot more than usual: not at all 9. Thoughts that you would be better off or of hurting yourself in some way: not at all Total score: 0 Depression Screening Interpretation: Negative Depression Screening Done: Yes 26623 - PHQ-9 Billing: Yes Source: Developed by Drs. Te Gonzalez, Itzel Velasco, Logan Peña and colleagues, with an educational mateo from [employer]. Thrive Questionnaire Date Thrive assessed: 03/17/25 I am a: Patient What is your living situation today?: I have a steady place to live Within the past 12 months, did the food you bought not last and you didn't have the money to get more?: Never true Within the past 12 months, did you worry whether your food would run out before you got money to buy more?: Never true Do you have trouble paying for medicines?: No Do you have trouble getting transportation to medical appointments?: No Do you have trouble paying your heating and electricity bill?: No Do you have trouble taking care of your child, family member or friend?: No Do you have trouble with day-to-day activities such as bathing, preparing meals, shopping, managing finances, etc.?: No Are you currently unemployed and looking for a job?: No Are you interested in more education?: No Please select the resources that you would like help with: None Currently or been in a relationship where the following occur: No concerns reported THRIVE Score: 0 AUDIT C Alcohol Use Questionnaire (AUDIT-C) 1. How often do you have a drink containing alcohol?: Monthly or less 2. How many drinks containing alcohol do you have on a typical day when you are drinking?: 1 or 2 3. How often do you have six or more drinks on one occasion?: Never Total Score: 1 Score Reviewed/Action Taken: Yes RERE-7 AMB Questionnaire RERE-7 Date RERE - 7 assessed: 09/16/24 Feeling nervous, anxious, or on edge: 0 = Not at all Not being able to stop or control worryin = Not at all Worrying too much about different things: 0 = Not at all Trouble relaxin = Not at all Being so restless that it is hard to sit still: 0 = Not at all Becoming easily annoyed or irritable: 0 = Not at all Feeling afraid as if something awful might happen: 0 = Not at all Total RERE-7 score (0-4 normal; 5-9 mild; 10-14 moderate; 15-21 severe): 0 Source: Developed by Drs. Te Gonzalez, Itzel Velasco, Logan Peña and colleagues, with an educational mateo from [employer]. Review of Systems Const Denies chills, Denies fatigue, Denies fever(s) and Denies headache(s) ENT Denies dysphagia, Denies dizziness, Denies otalgia, Denies headache(s), Denies neck pain, Denies odynophagia and Denies sore throat Card Denies chest pain, Denies irregular heart rhythm, Denies palpitations and Denies dyspnea Resp Denies chest congestion, Denies cough and Denies dyspnea GI Denies abdominal pain, Denies constipation, Denies dysphagia, Denies heartburn, Denies diarrhea, Denies nausea, Denies odynophagia and Denies vomiting Denies difficulty urinating (improved with Rx), Denies dysuria, Denies nocturia, Denies urinary frequency and Denies urinary hesitancy Musc Denies back pain, Denies arthralgias and Denies neck pain Skin/Breast Denies rash Neuro Denies dizziness, Denies headache(s) and Denies paresthesias Endo Denies fatigue and Denies palpitations Physical exam (Primary Care) Vital Signs: Last Vital Signs Pulse 51 03/17/25 09:31 BP 102/76 03/17/25 09:31 Pulse Ox 98 03/17/25 09:31 Oxygen Delivery Method Room Air 03/17/25 09:31 BMI result Body Mass Index 28.8 Tobacco/Smoking Status: Tobacco use Status Tobacco use date assessed 03/17/25 03/17/25 09:36 Patient Tobacco Use Status Never used Tobacco 03/17/25 09:36 e-Cigarette/Vaping Use Never Used 03/17/25 09:36 PHQ-9: PHQ-9 Score PHQ-9: Total score 0 03/17/25 09:36 Depression Screening Interpretation: Negative Thrive Assessment: Date of Thrive Assessment Date Thrive assessed 03/13/25 03/17/25 09:36 Currently or been in a relationship where the following occur: No concerns reported Const General: no acute distress and alert HENMT Ears: TM's normal bilaterally and EAC's normal Throat: Yes posterior oropharynx normal and Yes tonsils normal (no TP congestion) Neck Neck: Yes supple and No lymphadenopathy Thyroid: Thyroid normal Resp Auscultation: clear to auscultation bilaterally, no rales and no wheezes Cardio Rate: regular rate Rhythm: regular rhythm Heart sounds: no murmurs GI Palpation (GI): Soft to palpation and nontender Auscultation: normal bowel sounds General: Yes no CVA tenderness Back/Spine/Pelvis Back: no CVA tenderness Thoracic/Lumbar Spine: No lumbar spinal tenderness Skin Rashes: no rashes Extrem General: Yes no clubbing, cyanosis or edema Coding Level of Care Code Est Pt Level 4 (87757) Diagnoses Mixed hyperlipidemia E78.2 Impaired fasting glucose R73.01 Elevated LFTs R79.89 Benign prostatic hyperplasia with urinary frequency N40.1; R35.0 Lower urinary tract symptom detail: urinary frequency Overweight (BMI 25.0-29.9) E66.3 Additional Codes PHQ-9 - 49902 - PHQ-9 Billing: Yes ([id number]) Assessment & Plan Assessment & Plan (1) Mixed hyperlipidemia: Code(s): E78.2 - Mixed hyperlipidemia Category: Medical Plan: Reinforced low cholesterol diet Have advised patient that his cholesterol levels last year were within acceptable range Will have himi recheck his labs and fasting lipids in 6 months for follow up (2) Impaired fasting glucose: Code(s): R73.01 - Impaired fasting glucose Category: Medical Plan: Reinforced low calorie/low carb diet Will recheck his FBS in 6 months (3) Elevated LFTs: Code(s): R79.89 - Other specified abnormal findings of blood chemistry Category: Medical Plan: His serum ALT was slightly elevated but AST was normal on his labs done last year - discussed that this is likely related to his weight Will have him recheck his LFTs in 6 months for follow up (4) Benign prostatic hyperplasia with lower urinary tract symptoms: Code(s): N40.1 - Benign prostatic hyperplasia with lower urinary tract symptoms Category: Medical Qualifiers: Lower urinary tract symptom detail: urinary frequency Qualified Code(s): N40.1 - Benign prostatic hyperplasia with lower urinary tract symptoms; R35.0 - Frequency of micturition Plan: His PSA was elevated at 4.47 most recently in July 2024 Continue Alfuzosin ER 10 mg QD and Finasteride 5 mg QD Follow up with urology as scheduled (5) Overweight (BMI 25.0-29.9): Code(s): E66.3 - Overweight Category: Medical Plan: Reinforced diet/exercise as tolerated/lose weight Plan To return in 6 months for his next annual physical examination Orders: Orders Complete Blood Count Auto Diff 6 Months D64.9 - Anemia, unspecified Comprehensive [place]. Panel Fast 6 Months E78.00 - Pure hypercholesterolemia, unspecified Lipid Panel 6 Months E78.00 - Pure hypercholesterolemia, unspecified UA CC w/rflx Micro + Cult 6 Months R30.0 - Dysuria TSH reflex Free T4 6 Months E78.00 - Pure hypercholesterolemia, unspecified Vitamin D 25-OH Total 6 Months E55.9 - Vitamin D deficiency, unspecified
== END 2025-03-17 10:06 | disposition home or self-care (01) ==
LOC: HO.HMCH 09:16
PROVIDERS: PCP Internal Medicine; Visit Provider Internal Medicine
DX: E78.2 Mixed hyperlipidemia (principal); R73.01 Impaired fasting glucose; R79.89 Other specified abnormal findings of blood chemistry; N40.1 Benign prostatic hyperplasia with lower urinary tract symptoms; R35.0 Frequency of micturition; E66.3 Overweight

== ENCOUNTER → 2025-03-17 09:15 | Outpatient (BNVA) | payer BC, SELFPAY | PROVIDERS: PCP Internal Medicine; Visit Provider Internal Medicine | DX: E78.2 Mixed hyperlipidemia (principal); R73.01 Impaired fasting glucose; R79.89 Other specified abnormal findings of blood chemistry; N40.1 Benign prostatic hyperplasia with lower urinary tract symptoms; R35.0 Frequency of micturition; E66.3 Overweight; Z68.28 Body mass index [BMI] 28.0-28.9, adult | CPT/HCPCS: 96127 ==

== ENCOUNTER 2025-03-21 06:54 | Outpatient (REF) | payer BC, SELFPAY ==
--- OUTSIDE RECORDS SUMMARY | 2025-03-21 06:57 | XMS_ITS ---
Author Name [facility] Organization Unknown Care Team Organization Name Specialty Phone Email Start Date End [facility] 04/12/2024
[2025-03-21 07:05] LABS: MANUAL DIFF FLAG NO
[2025-03-21 07:29] LABS: Hematocrit 42.5 % (42.0-52.0); Hemoglobin 14.1 g/dl (14.0-18.0); Imm Gran Abs Auto 0.01 X10*3/uL (0.00-0.03); Imm Gran Pct Auto 0.1 % (0.0-0.4); Lymphocytes Absolute Auto 2.6 X10*3/uL (1.2-4.9); Mean Corpuscular HGB Conc 33.2 g/dl (31.0-36.0); Mean Corpuscular Hemoglobin 29.5 pg (27.0-33.0); Mean Corpuscular Volume 88.9 fL (80.0-98.0); NRBC Abs Auto 0.000 X10*3/uL (0.0-0.012); NRBC Pct Auto 0.0 /100WBC (0.0-0.2); Platelet Count 253 X10*3/uL (160-400); Red Blood Count 4.78 X10*6/uL (4.60-5.80); White Blood Count 7.5 X10*3/uL (4.8-10.8)
[2025-03-21 07:36] LABS: Appearance Urine Clear; Glucose Urine UA Negative (Negative); PH 6.0 (5.0-9.0); Specific Gravity - Urine 1.025 (1.005-1.025)
[2025-03-21 08:16] LABS: Alanine Aminotransferase 30 U/L (0-40); Albumin Level 4.1 g/dL (3.5-5.0); Alkaline Phosphatase 77 U/L (39-117); Anion Gap 7 (12-20); Aspartate Amino Transferase 30 U/L (5-37); Blood Urea Nitrogen 10 mg/dL (9-16); Calcium 9.0 mg/dL (8.4-10.2); Carbon Dioxide 27 mmol/L (22-29); Chloride 110 mmol/L (96-108); Cholesterol 137 mg/dL (<200); Estimated Glomerular Filt Rate > 60; HDL Cholesterol 54 mg/dL (>40); Potassium 4.3 mmol/L (3.3-5.1); Sodium 140 mmol/L (135-145); Total Protein 6.8 g/dL (6.5-8.0); Triglycerides 91 mg/dL (<150)
== END 2025-03-21 06:55 | disposition home or self-care (01) ==
LOC: HO.LAB 06:54
PROVIDERS: PCP Internal Medicine
DX: N40.1 Benign prostatic hyperplasia with lower urinary tract symptoms (principal); R39.15 Urgency of urination; R35.0 Frequency of micturition; E78.2 Mixed hyperlipidemia; R79.89 Other specified abnormal findings of blood chemistry; E66.3 Overweight; R73.01 Impaired fasting glucose
CPT/HCPCS: 36415; 80053; 80061; 81003; 82306; 84443; 85025

== ENCOUNTER 2025-03-24 06:51 | Outpatient (REF) | payer BC, SELFPAY ==
[2025-03-24 08:30] LABS: PSA,Total (Free>4and<10) 2.97 ng/mL (0.00-4.00)
== END 2025-03-24 06:52 | disposition home or self-care (01) ==
LOC: HO.LAB 06:51
PROVIDERS: PCP Internal Medicine; Visit Provider Nurse Practitioner Family
DX: Z12.5 Encounter for screening for malignant neoplasm of prostate (principal); N40.1 Benign prostatic hyperplasia with lower urinary tract symptoms; E78.2 Mixed hyperlipidemia; E66.3 Overweight; R35.0 Frequency of micturition; R39.15 Urgency of urination; R79.89 Other specified abnormal findings of blood chemistry; R73.01 Impaired fasting glucose
CPT/HCPCS: 36415; 82947; 84153

== ENCOUNTER 2025-04-03 10:42 | Outpatient (AMB) | payer BC, SELFPAY ==
--- NOTE | 2025-04-03 10:44 | MHC.OFFVIS ---
Intake Visit Reasons: 6m/PSA/PVR Intake Note: Patient is present for 6M/PSA/PVR Urology Medication:ALFUZOSIN,FINASTERIDE Antibiotic Allergy:NONE Blood Thinner:NONE TODAY'S PVR: 0ML'S [employer] Buffer Required: No Allergies No Known Allergies Allergy (Verified 04/03/25 11:09) Medication List - Last Reconciled 04/03/25 by MARGARITA BrightP- alfuzosin ER 10 mg PO BEDTIME 90 days finasteride 5 mg PO DAILY 90 days HPI Comments Details: Geovany is a very pleasant 44-year-old male patient of Dr. Cruz. He has a past medical history of elevated LFTs, mixed hyperlipidemia, and low-back pain. He presents to the office today for follow-up of his lower urinary tract symptoms and elevated PSA. In discussion with the patient today reports to be doing and feeling well. He reports compliance with finasteride and alfuzosin as prescribed. Of note, patient underwent prostate biopsy with Dr. Bose 09/20 that noted 60 g prostate with negative biopsy. Previous workup has also included an MRI of the prostate 09/20 focus of abnormal signal intensity in the left posteromedial peripheral zone in the mid gland, highly suspicious for clinically significant prostate carcinoma. Additional indeterminate focus in the left posterolateral peripheral zone at the base. PI-RADS 4. PSAs are as follows: 09/19 3.9, 05/21 3.9, 08/20 4.5, 03/22 3.0 We did discussed decrease in PSA. We also discussed further treatment options to include uroflow and cystoscopy to further assess for potential prostate procedure. He does continue to report episodes of urinary urgency and weak urinary stream. He does feel symptoms have improved with alfuzosin and finasteride. He otherwise denies incontinence, hematuria, dysuria, foul smelling urine, flank pain, fever, and or chills. In office urinalysis results reviewed with the patient today. He otherwise offers no other issues or concerns at this time. PREVIOUS OFFICE NOTE: Discussed prostate biopsy results 60 g prostate with negative biopsy Reassurance provided Start finasteride with alfuzosin Follow-up 6 months with PSA and nurse-practitioner Elevated PSA PSA 09/19 3.9, 05/21 3.9, 08/20 4.5 Imaging 08/20 MRI prostate - focus of abnormal signal intensity in the left posteromedial peripheral zone in the mid gland, highly suspicious for clinically significant prostate carcinom PFSH Medical History Overweight (BMI 25.0-29.9) Elevated LFTs Impaired fasting glucose Mixed hyperlipidemia Bilateral shoulder pain History of low back pain Surgical History No pertinent past surgical history Family History Father No problems noted. 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 Cognitive needs: No Hearing needs: No Vision needs: No Review of Systems Const All systems reviewed & are unremarkable except as noted in HPI and below Physical Exam Const General: cooperative, healthy appearing, comfortable, no acute distress, well developed, alert and awake Orientation/consciousness: patient oriented x3 Limitations: no limitations HEENT Head: Yes normal to inspection, Yes normocephalic and Yes atraumatic Ears: hearing grossly normal bilaterally Eyes General: appearance normal, both eyes and all related structures Neck Neck: Yes normal visual inspection and Yes trachea midline Chest Chest palpation & inspection: normal inspection of the chest Resp Effort & Inspection: normal respiratory effort and able to speak in complete sentences Cardio Rate: regular rate GI Inspection: Yes normal to inspection General: Yes no CVA tenderness Back/Spine/Pelvis Back: no CVA tenderness Skin General skin exam: no rashes or lesions noted Neuro General: patient oriented x3 Extrem General: Yes normal to inspection Psych Appearance: grossly normal and well kempt Mental Status: mental status grossly normal Speech and movement: Normal speech and movement present and Clear speech present Affect: normal affect Attitude: cooperative Thought process: Normal thought process present Thought content: Normal thought content present Insight: Fair insight present (Psych) Judgement: Fair judgement present (Psych) Office Procedures Post Void Residual Post Residual Void Post Void Residual (PVR): 0 [id number] Void Residual by ultrasound Results AMB Urinalysis, Automated UA Leukoctes 0 Munir/uL Last Edit by JOSE Bowers on 04/03/25 11:01 UA Nitrite Negative Last Edit by JOSE Bowers on 04/03/25 11:01 UA Urobilinogen 0.2 mg/dL Last Edit by JOSE Bowers on 04/03/25 11:01 UA Protein 15 mg/dL Last Edit by Nya Raines CCM on 04/03/25 11:01 UA pH 7.5 Last Edit by Nya Raines [facility] on 04/03/25 11:01 UA Blood 0 Wilian/uL Last Edit by Nya Raines [facility] on 04/03/25 11:01 UA Specific [place] 1.015 Last Edit by Nya Raines CCM on 04/03/25 11:01 UA Ketone Negative Last Edit by Nya Raines [facility] on 04/03/25 11:01 UA Bilirubin 0 mg/dL Last Edit by Nya Raines [facility] on 04/03/25 11:01 UA Glucose 0 mg/dL Last Edit by [facility]ya Raines [facility] on 04/03/25 11:01 Results Reviewed Results Reviewed: Laboratory Last Values Urine pH (Auto) 7.5 04/03/25 11:01 Specific [place] (Auto) 1.015 04/03/25 11:01 Urine Protein (Auto) 15 mg/dL 04/03/25 11:01 Glucose (UA)(Auto) 0 mg/dL 04/03/25 11:01 Urine Ketones (Auto) Negative 04/03/25 11:01 Urine Blood (Auto) 0 Wilian/uL 04/03/25 11:01 Urine Nitrite (Auto) Negative 04/03/25 11:01 Urine Bilirubin (Auto) 0 mg/dL 04/03/25 11:01 Urine Urobilinogen (Auto) 0.2 mg/dL 04/03/25 11:01 Leukocyte Esterase (Auto) 0 Munir/uL 04/03/25 11:01 Assessment & Plan Assessment & Plan (1) Elevated PSA: Code(s): R97.20 - Elevated prostate specific antigen [PSA] Category: Medical (2) Urinary urgency: Code(s): R39.15 - Urgency of urination Category: Medical (3) Urinary hesitancy: Code(s): R39.11 - Hesitancy of micturition Category: Medical (4) Urinary frequency: Code(s): R35.0 - Frequency of micturition Category: Medical (5) Benign prostatic hyperplasia with lower urinary tract symptoms: Code(s): N40.1 - Benign prostatic hyperplasia with lower urinary tract symptoms Category: Medical Qualifiers: Lower urinary tract symptom detail: urinary frequency Qualified Code(s): N40.1 - Benign prostatic hyperplasia with lower urinary tract symptoms; R35.0 - Frequency of micturition Plan In office urinalysis results reviewed with the patient today; as noted above. PVR 0 mL Recent PSA results reviewed with the patient today; as noted above. We did discuss further treatment options to include uroflow and in office cystoscopy; he would like to think about this. Continue finasteride and alfuzosin as discussed and prescribed. All questions were answered. Will continue with surveillance monitoring. Will obtain PSA in 6 months. Follow-up in 6 months with PSA and PVR; or sooner with any issues, concerns, and or questions. Orders: Orders PSA,Total (Free>4and<10) 03/24/25 N40.1 - Benign prostatic hyperplasia with lower urinary tract symptoms, R35.0 - Frequency of micturition AMB Urinalysis Automated Today Z13.9 - Encounter for screening, unspecified Prostate Specific Antigen 6 Months R97.20 - Elevated prostate specific antigen [PSA] Patient Instructions: The patient had an opportunity to ask questions regarding the treatment plan. All questions were answered. Physical exam, labs, and imaging were discussed and reviewed in detail. As well as risks, benefits, and discussion of treatment choices. No major barriers to understanding were identified. The patient expressed understanding and agreement with the above treatment plan. The patient was made aware they should contact our office by phone for worsening of their current condition, the appearance of new symptoms, or with any questions or concerns. Compliance is encouraged with any medications and follow up testing that is ordered. It is a privilege to be allowed the opportunity to participate in? your urological care.? Again, if you have any questions or concerns If you have any questions or concerns please do not hesitate to contact me. The office is [phone]. This note is constructed using voice recognition software. While every effort has been made to ensure accuracy puttier errors may have been included. Yours sincerely, KATIE Bright- Coding Level of Care Code Est Pt Level 3 (00689) Diagnoses Elevated PSA R97.20 Urinary urgency R39.15 Urinary hesitancy R39.11 Urinary frequency R35.0 Benign prostatic hyperplasia with urinary frequency N40.1; R35.0 Lower urinary tract symptom detail: urinary frequency CPT Codes Post Residual Void - PVR CPT Code: 73237-Jmqb Void Residual by ultrasound ([id number])
== END 2025-04-03 11:09 | disposition home or self-care (01) ==
LOC: HO.HUSH 10:43
PROVIDERS: PCP Internal Medicine; Visit Provider Nurse Practitioner Family
DX: R97.20 Elevated prostate specific antigen [PSA] (principal); R39.15 Urgency of urination; R39.11 Hesitancy of micturition; R35.0 Frequency of micturition; N40.1 Benign prostatic hyperplasia with lower urinary tract symptoms
CPT/HCPCS: 99213

== ENCOUNTER → 2025-04-03 10:42 | Outpatient (BNVA) | payer BC, SELFPAY | PROVIDERS: PCP Internal Medicine; Visit Provider Nurse Practitioner Family | DX: N40.1 Benign prostatic hyperplasia with lower urinary tract symptoms (principal); R97.20 Elevated prostate specific antigen [PSA] | CPT/HCPCS: 51798; 81003 ==